=== PATIENT | female | born 1955 | race Asian ===

== ENCOUNTER 2022-05-04 08:20 | Outpatient (REF) | payer OTHER, SELFPAY ==
[2022-05-04 11:19] LABS: MANUAL DIFF FLAG NO
[2022-05-04 11:28] LABS: Basophils Percent Auto 0.2 % (0-2); Eosinophils Absolute Auto 0.1 X10*3/uL (0.0-0.4); Eosinophils Percent Auto 0.6 % (0-4); Hematocrit 33.2 % (37.0-47.0); Hemoglobin 10.5 g/dl (12.0-16.0); Imm Gran Abs Auto 0.04 X10*3/uL (0.00-0.03); Imm Gran Pct Auto 0.4 % (0.0-0.4); Lymphocytes Absolute Auto 0.8 X10*3/uL (1.2-4.9); Lymphocytes Percent Auto 9.1 % (20-40); Mean Corpuscular HGB Conc 31.6 g/dl (31.0-35.0); Mean Corpuscular Hemoglobin 19.8 pg (27.0-33.0); Mean Platelet Volume 11.3 fL (9.4-12.3); Monocytes Absolute Auto 0.5 X10*3/uL (0.1-1.2); Monocytes Percent Auto 5.5 % (2-11); Neutrophils Absolute Auto 7.6 x10*3/uL (2.0-8.3); Neutrophils Percent Auto 84.2 % (45-73); Platelet Count 229 X10*3/uL (160-400); Red Cell Distribution Width 15.3 % (11.0-16.0)
[2022-05-04 11:29] LABS: Mean Corpuscular Volume 62.6 fL (80.0-98.0)
[2022-05-04 11:47] LABS: Alanine Aminotransferase 16 U/L (0-31); Albumin Level 4.1 g/dL (3.5-5.0); Alkaline Phosphatase 73 U/L (39-117); Anion Gap 9 (12-20); Aspartate Amino Transferase 16 U/L (5-31); Bilirubin Total 1.4 mg/dL (0.0-1.0); Blood Urea Nitrogen 12 mg/dL (9-16); Carbon Dioxide 29 mmol/L (22-29); Chloride 104 mmol/L (96-108); Cholesterol 187 mg/dL; Estimated Glomerular Filt Rate > 60; Glucose Fasting 126 mg/dL (60-99); HDL Cholesterol 56 mg/dL; LDL Cholesterol Calculated 111 mg/dl; Potassium 4.2 mmol/L (3.3-5.1); Sodium 138 mmol/L (135-145); Total Protein 7.7 g/dL (6.5-8.0); Triglycerides 102 mg/dL
[2022-05-04 11:50] LABS: Creatinine Urine 192.98 mg/dL; Microalbum/Creatinine Ratio Ur 122.2 ug/mg cr
[2022-05-04 12:05] LABS: Vitamin D 25-OH Total 36.9 ng/mL (>30)
== END 2022-05-04 08:21 | disposition home or self-care (01) ==
LOC: HO.HMGCLDS 08:20
PROVIDERS: PCP Internal Medicine; Visit Provider Internal Medicine
DX: Z00.01 Encounter for general adult medical examination with abnormal findings (principal); E08.9 Diabetes mellitus due to underlying condition without complications; I10 Essential (primary) hypertension
CPT/HCPCS: 36415; 80053; 80061; 82043; 82306; 85025

== ENCOUNTER 2022-05-25 07:33 | Outpatient (REF) | payer OTHER, SELFPAY ==
--- NOTE | ~2022-05-25 | MM_ITS ---
EXAMINATION: MM SCREENING DIGITAL BREAST TOMOSYNTHESIS, BILATERAL CLINICAL INFORMATION: Screening. Asymptomatic. Prior flu-tb-ckxah mammography currently unavailable. No known family history breast cancer. The lifetime risk of breast cancer based on the Tyrer-Cuzick Model is 6%. COMPARISON: None. TECHNIQUE: Digital breast tomosynthesis is performed in both the craniocaudal and mediolateral oblique views along with computer-aided detection (CAD). Synthesized 2D images are generated from the tomosynthesis. FINDINGS: There are scattered areas of fibroglandular density (ACR BI-RADS breast composition Category b). There are no significant masses, abnormal calcifications, or other abnormalities. The axilla and skin contours are unremarkable. Radiology department staff will attempt to retrieve prior ypt-zm-lkqot mammography to allow for comparison in an addendum report. MM/MM tomosynthesis screening BI IMPRESSION: No mammographic evidence of malignancy. ASSESSMENT: BI-RADS 1: Negative RECOMMENDATION: -Routine annual mammography screening. -Radiology department staff will attempt to retrieve prior uir-mr-whtpm mammography to allow for comparison in an addendum report. This patient's information was entered into a reminder system with a target due date for their next mammogram.
--- NOTE | ~2022-05-25 | MM_ITS ---
EXAMINATION: BONE DENSITOMETRY CLINICAL INDICATION: Osteoporosis. COMPARISON: This is the patient's baseline examination. TECHNIQUE: Using a Echov[employer] DXA System (software version: 13.1) manufactured by [employer], dual-energy x-ray absorptiometry was performed of the lumbar spine and left hip. The images are of good technical quality. Summary results are attached. FINDINGS: AP SPINE L1-L4: BMD 0.991 g/cm2, Z-score 0.1, T-score -1.6, osteopenia. LEFT FEMUR, NECK: BMD 0.783 g/cm2, Z-score -0.2, T-score -1.8, osteopenia. LEFT FEMUR, TOTAL: BMD 0.916 g/cm2, Z-score 0.7, T-score -0.7, normal. IDENTIFIED RISK FACTORS: Menopause. HISTORY OF FRACTURE: None listed. MEDICATIONS: Vitamin D. MM/XR DEXA axial skeleton IMPRESSION: 1. DIAGNOSIS: Osteopenia based on the lowest T-score value of -1.8 in the femoral neck applying World Health Organization criteria. 2. 10-YEAR FRACTURE RISK PREDICTION, FRAX: Major osteoporotic fracture (clinical spine, forearm, hip or shoulder) 6.1%. Hip fracture 1.0%. 3. Treatment Recommendations: NOF guidelines recommend consideration for treatment in postmenopausal women and men age 50 and older presenting with the following: -A hip or vertebral (clinical or morphometric) fracture. -T-score less than or equal to -2.5 at the femoral neck or spine after appropriate evaluation to exclude secondary causes. -Low bone mass at the hip or spine and a 10-year fracture probability by FRAX of greater than or equal to 3% for hip fracture or greater than or equal to 20% for major osteoporotic fracture based on the [place] adapted WHO algorithm. 4. Other Recommendations: All treatment decisions require clinical judgment and consideration of individual patient factors, including patient preferences, comorbidities, previous drug use, risk factors not captured in the FRAX model (e.g. frailty, falls, vitamin D deficiency, increased bone turnover, interval significant decline in bone density) and possible under or overestimation of fracture risk by FRAX. Additional medical evaluation for secondary cause of low bone mineral density may be appropriate. FUTURE SCAN RECOMMENDATION: People with diagnosed cases of osteoporosis or at high risk for fracture should have regular bone mineral density tests. For patients eligible for Medicare, routine testing is allowed once every 2 years. The testing frequency can be increased to one year for patients who have rapidly progressing disease, those who are receiving or discontinuing medical therapy to restore bone mass, or have additional risk factors.
== END 2022-05-25 07:34 | disposition home or self-care (01) ==
LOC: HO.MAMMO 07:33
PROVIDERS: PCP Internal Medicine; Visit Provider Internal Medicine
DX: Z12.31 Encounter for screening mammogram for malignant neoplasm of breast (principal); Z13.820 Encounter for screening for osteoporosis; M81.0 Age-related osteoporosis without current pathological fracture; Z78.0 Asymptomatic menopausal state
CPT/HCPCS: 77063; 77067; 77080

== ENCOUNTER 2022-12-12 08:05 | Outpatient (REF) | payer OTHER, SELFPAY ==
[2022-12-12 11:31] LABS: MANUAL DIFF FLAG NO
[2022-12-12 11:56] LABS: Basophils Percent Auto 0.4 % (0-2); Eosinophils Absolute Auto 0.1 X10*3/uL (0.0-0.4); Eosinophils Percent Auto 2.3 % (0-4); Hematocrit 31.7 % (37.0-47.0); Imm Gran Abs Auto 0.02 X10*3/uL (0.00-0.03); Imm Gran Pct Auto 0.4 % (0.0-0.4); Lymphocytes Absolute Auto 2.4 X10*3/uL (1.2-4.9); Lymphocytes Percent Auto 45.4 % (20-40); Mean Corpuscular HGB Conc 31.5 g/dl (31.0-35.0); Mean Corpuscular Hemoglobin 19.4 pg (27.0-33.0); Mean Platelet Volume 10.3 fL (9.4-12.3); Monocytes Absolute Auto 0.3 X10*3/uL (0.1-1.2); Monocytes Percent Auto 6.3 % (2-11); Neutrophils Absolute Auto 2.4 x10*3/uL (2.0-8.3); Neutrophils Percent Auto 45.2 % (45-73); Platelet Count 300 X10*3/uL (160-400); Red Blood Count 5.15 X10*6/uL (4.20-5.50); Red Cell Distribution Width 15.4 % (11.0-16.0); White Blood Count 5.3 X10*3/uL (4.8-10.8)
[2022-12-12 11:58] LABS: Mean Corpuscular Volume 61.6 fL (80.0-98.0)
[2022-12-12 12:22] LABS: Alanine Aminotransferase 16 U/L (0-31); Alkaline Phosphatase 66 U/L (39-117); Anion Gap 13 (12-20); Aspartate Amino Transferase 14 U/L (5-31); Bilirubin Total 0.7 mg/dL (0.0-1.0); Blood Urea Nitrogen 12 mg/dL (9-16); Calcium 9.2 mg/dL (8.4-10.2); Carbon Dioxide 26 mmol/L (22-29); Chloride 106 mmol/L (96-108); Cholesterol 192 mg/dL (<200); Estimated Glomerular Filt Rate > 60; Glucose Fasting 108 mg/dL (60-99); HDL Cholesterol 63 mg/dL (>40); Iron 117 mcg/dL (30-160); LDL Cholesterol Calculated 106 mg/dL (<100); Percent Iron Saturation 49 % (15-50); Potassium 4.1 mmol/L (3.3-5.1); Sodium 141 mmol/L (135-145); Total Iron Binding Capacity 238 mcg/dL (228-428); Total Protein 7.5 g/dL (6.5-8.0); Triglycerides 115 mg/dL (<150); Unsaturated Iron Binding 121 ug/dL; Vitamin D 25-OH Total 31.9 ng/mL (>30)
== END 2022-12-12 08:06 | disposition home or self-care (01) ==
LOC: HO.HMGCLDS 08:05
PROVIDERS: PCP Internal Medicine; Visit Provider Internal Medicine
DX: D56.9 Thalassemia, unspecified (principal); E08.9 Diabetes mellitus due to underlying condition without complications; I10 Essential (primary) hypertension
CPT/HCPCS: 36415; 80053; 80061; 82306; 83540; 85025

== ENCOUNTER 2022-12-21 13:35 | Outpatient (AMB) | payer OTHER, SELFPAY ==
--- NOTE | 2022-12-21 13:37 | A.OFFPC_ITS ---
Vital Signs 12/21/22 13:42 Height 5 ft Weight 147 lb BMI 28.7 BP 126/70 Blood Pressure Location Rt brachial Position Sitting Pulse 79 Pulse Source Pulse Oximeter Pulse Oximetry (%) 97 Oxygen Delivery Method Room Air Intake Visit Reasons: f/u DM and lipids Intake Note: Pt is here today for her f/u DM and lipids Allergies No Known Allergies Allergy (Verified 01/15/23 04:03) Medication List - Last Reconciled 01/15/23 by Mary Mcmahon MD blood sugar diagnostic (OneTouch Verio test strips) once a day lancets test blood sugar once a day losartan 25 mg PO QAM metformin 500 mg PO DAILY rosuvastatin 5 mg PO Q2D 3 months Tobacco use date assessed: 12/21/22 Fall risk assessment: No Falls in past year Last assessed Fall Risk: 12/21/22 Dental Screening Dental Screen Date: 12/21/22 Did you have a dental visit in the last 12 months?: Yes Did you have a dental problem in the last 6 months where you did not have access to dental care?: Yes Was dental information given to patient?: Patient has dentist HPI f/u DM and lipids HPI Details 67-year-old lady here today for follow-u p on her diabetes mellitus and dyslipidemia as well as her hypertension. She has been compliant with taking her medications, exercises regularly goes to the gym, has been feeling well with no complaints at present time. 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 Surgical History History of cataract surgery History of bunionectomy of both great toes History of cholecystectomy History of Hx of colonoscopy Family History Mother Diabetes mellitus Brother Lung cancer Diabetes mellitus Brother Diabetes mellitus Social History Housing: House Patient Tobacco Use Status: Never used Tobacco e-Cigarette/Vaping Use: Never Used service: No Current occupational status: retired Cognitive needs: No Hearing needs: No Vision needs: Yes Questionnaire Thrive Questionnaire Date Thrive assessed: 04/25/22 CRISS-7 AMB Questionnaire CRISS-7 Date CRISS - 7 assessed: 04/25/22 Source: Developed by Drs. Niraj Barclay, Citlaly Martinez, Ulisses Mckeon and colleagues, with an educational karri from [employer]. Review of Systems Const Denies body aches, Denies fatigue, Denies fever(s), Denies headache(s) and Denies weakness Eyes Denies change in vision ENT Denies dizziness, Denies headache(s), Denies nasal congestion, Denies nasal discharge and Denies sore throat Card Denies chest pain, Denies lightheadedness, Denies palpitations and Denies dyspnea Resp Denies chest congestion, Denies cough, Denies dyspnea and Denies wheezing GI Denies abdominal pain, Denies change in bowel habits and Denies heartburn Denies hematuria, Denies urinary frequency, Denies dysuria and Denies urinary urgency Musc Reports no additional complaints Neuro Denies dizziness, Denies headache(s), Reports tremor(s) (Occasional mild) and Denies weakness Psych Reports no additional complaints Endo Denies fatigue, Denies polydipsia, Denies polyuria and Denies palpitations Hector/Lymph Denies easy bruising Aller/Immun Denies seasonal rhinorrhea and Denies wheezing Physical exam (Primary Care) Vital Signs: Last Vital Signs Pulse 79 12/21/22 13:42 BP 126/70 12/21/22 13:42 Pulse Ox 97 12/21/22 13:42 Oxygen Delivery Method Room Air 12/21/22 13:42 BMI result Body Mass Index 28.7 Tobacco/Smoking Status: Tobacco use Status Tobacco use date assessed 12/21/22 12/21/22 13:38 Patient Tobacco Use Status Never used Tobacco 12/21/22 13:38 e-Cigarette/Vaping Use Never Used 12/21/22 13:38 Thrive Assessment: Date of Thrive Assessment Date Thrive assessed 04/25/22 12/21/22 13:38 Const General: healthy appearing, comfortable, no acute distress, alert and awake Nutritional Appearance: overweight Orientation/consciousness: patient oriented x3 Limitations: no limitations HENMT Head: Yes normocephalic Ears: hearing grossly normal bilaterally, external ears normal, TM's normal bilaterally and EAC's normal General nose exam: Normal external nose present, Normal nares present and No nasal discharge present Face and sinus: Yes face symmetric Mouth: Normal oral and palatal mucosa present, oropharynx normal and moist mucous membranes Eyes General: appearance normal, both eyes and all related structures Neck Neck: Yes full ROM, Yes no lymphadenopathy and Yes supple Thyroid: Thyroid normal Carotids: no bruits Resp Effort & Inspection: normal respiratory effort and able to speak in complete sentences Auscultation: clear to auscultation bilaterally Cardio Palpation: normal PMI Rate: regular rate Rhythm: regular rhythm Heart sounds: S1 normal heart sound present and S2 normal heart sound present Bruits: no abdominal aortic bruits Peripheral pulses: Peripheral pulses 2+ throughout GI Inspection: Yes normal to inspection Palpation (GI): No Abdominal aortic bruit present, Soft to palpation, nontender, no guarding and no masses Auscultation: normal bowel sounds General: Yes no CVA tenderness Back/Spine/Pelvis Back: no CVA tenderness and No back tenderness Cervical Spine: cervical ROM normal Thoracic/Lumbar Spine: thoraco-lumbar ROM normal and Lasegue's sign negative Neuro General: patient oriented x3, gait normal, tone normal, moves all extremities, Normal light touch and pain sensation, no focal motor deficits and CN's II-XI intact bilaterally Cranial nerves: Yes CN's II-XII intact bilaterally Cognition (Neuro): normal cognition Gait exam (Neuro): Normal gait present Motor exam (neuro): 5/5 motor strength present throughout Extrem General: Yes normal to inspection, Yes full ROM, Yes no joint enlargement, Yes no clubbing, cyanosis or edema, Yes no pedal edema, Yes no calf tenderness and Yes normal gait Results Reviewed Results Reviewed: ENTERED: 12/12/22-807 BRUCE SHOEMAKER: ORDERED: CBC Auto Diff Test Result Flag Reference Site WBC 5.3 4.8-10.8 X10*3/uL RBC 5.15 4.20-5.50 X10*6/uL HGB 10.0 L 12.0-16.0 g/dl HCT 31.7 L 37.0-47.0 % MCV 61.6 L 80.0-98.0 fL MCH 19.4 L 27.0-33.0 pg MCHC 31.5 31.0-35.0 g/dl RDW 15.4 11.0-16.0 % PLT 300 # 160-400 X10*3/uL MPV 10.3 9.4-12.3 fL Neut Pct Auto 45.2 45-73 % ImGran Pct Auto 0.4 0.0-0.4 % Lymp Pct Auto 45.4 H 20-40 % [place] Pct Auto 6.3 2-11 % Eos Pct Auto 2.3 0-4 % Baso Pct Auto 0.4 0-2 % NRBC Pct Auto 0.0 0.0-0.2 /100WBC ANC Neut Abs # 2.4 2.0-8.3 x10*3/uL ImGran Abs Auto 0.02 0.00-0.03 X10*3/uL Lymph Abs Auto 2.4 1.2-4.9 X10*3/uL [place] Abs Auto 0.3 0.1-1.2 X10*3/uL Eos Abs Auto 0.1 0.0-0.4 X10*3/uL Baso Abs Auto 0.0 0.0-0.2 X10*3/uL NRBC Abs Auto 0.000 0.0-0.012 X10*3/uL ENTERED: 12/12/22-08 BRUCE SHOEMAKER: ORDERED: CMP Fast, IRON PROF, Lipid Panel, Vitamin D 25-OH Test Result Flag Reference Site Sodium 141 135-145 mmol/L Potassium 4.1 3.3-5.1 mmol/L CL 106 96-108 mmol/L CO2 26 22-29 mmol/L Gap 13 12-20 BUN 12 9-16 mg/dL Creat 0.71 0.5-1.4 mg/dL EGFR > 60 NOTE: For -[place] individuals, multiply the result by 1.210. Chronic Kidney Disease: Estimated GFR < 60 mL/min/1.73m2 Severe Kidney Disease: Estimated GFR < 15 mL/min/1.73m2 FBS 108 H 60-99 mg/dL A fasting glucose from 100-125 mg/dl is considered impaired (pre-diabetes). CA 9.2 8.4-10.2 mg/dL Iron 117 30-160 mcg/dL TIBC 238 228-428 mcg/dL Saturation 49 15-50 % UIBC 121 ug/dL Total Bili 0.7 0.0-1.0 mg/dL AST (GOT) 14 5-31 U/L ALT (GPT) 16 0-31 U/L Protein, Total 7.5 6.5-8.0 g/dL Alb 4.0 3.5-5.0 g/dL Triglyceride 115 <150 mg/dL Desirable Triglyceride: less than 150 mg/dL Borderline High Triglyceride 150-199 mg/dL High Triglyceride: 200-499 mg/dL Very High Triglyceride: greater than or equal to 5OO mg/dL Cholesterol 192 <200 mg/dL Desirable Cholesterol: less than 200 mg/dL Borderline High Cholesterol: 200-239 mg/dL High Cholesterol: greater than 239 mg/dL LDL Calculated 106 H <100 mg/dL Desirable LDL: less than 100 mg/dL Near Optimal/Above Optimal LDL: 110-129 mg/dL Borderline High LDL: 130-159 mg/dL High LDL: 160-189 mg/dL Very High LDL: greater than or equal to 190 mg/dL HDL 63 >40 mg/dL Desirable HDL: greater than 40 mg/dL Note: This HDL assay may give artificially low results in patients with liver disease. Alk Phos 66 39-117 U/L Vit D 25-OH Tot 31.9 >30 ng/mL Health Based Reference Values* < 20 ng/mL Deficient 20-30 ng/mL Insufficient > 30 ng/mL Sufficient Laboratory Tests 04/25/22 10:11 Hgb A1c (Clinic) 5.6 Assessment and Plan Assessment & Plan (1) Diabetes mellitus with microalbuminuria: Code(s): E11.29 - Type 2 diabetes mellitus with other diabetic kidney complication; R80.9 - Proteinuria, unspecified Plan: Continue with metformin 500 mg once a day, last hemoglobin A1c was at 5.6% reminded about getting yearly diabetes retinopathy screening and getting an updated flu vaccine and the new COVID booster which is coming up later this month. (2) Thalassemia: Code(s): D56.9 - Thalassemia, unspecified Plan: Patient with microcytic hyperchromic anemia likely due to thalassemia currently asymptomatic (3) Osteopenia of left femoral neck: Code(s): M85.852 - Other specified disorders of bone density and structure, left thigh Plan: Continue with regular weight-bearing exercise, start taking vitamin-D 3 supplements at least 2000 units daily, and take adequate calcium from dietary sources. (4) Essential hypertension: Code(s): I10 - Essential (primary) hypertension Plan: Blood pressure at goal of less than 130/80. Continue with losartan 25 mg daily. Reinforced importance of following a low sodium diet, getting regular exercise, and lowering stress levels. Orders: Orders Microalbumin, Random (w Creat) 06/15/23 E11.29 - Type 2 diabetes mellitus with other diabetic kidney complication, R80.9 - Proteinuria, unspecified, M85.852 - Other specified disorders of bone density and structure, left thigh, D56.9 - Thalassemia, unspecified, I10 - Essential (primary) hypertension, Z78.0 - Asymptomatic menopausal state Vitamin D 25-OH Total 06/15/23 E11.29 - Type 2 diabetes mellitus with other diabetic kidney complication, R80.9 - Proteinuria, unspecified, M85.852 - Other specified disorders of bone density and structure, left thigh, D56.9 - Thalassemia, unspecified, I10 - Essential (primary) hypertension, Z78.0 - Asymptomatic menopausal state Hemoglobin A1c 06/15/23 E11.29 - Type 2 diabetes mellitus with other diabetic kidney complication, R80.9 - Proteinuria, unspecified, M85.852 - Other specified disorders of bone density and structure, left thigh, D56.9 - Thalassemia, unspecified, I10 - Essential (primary) hypertension, Z78.0 - Asymptomatic menopausal state Basic Metabolic Panel Fasting 06/15/23 E11.29 - Type 2 diabetes mellitus with other diabetic kidney complication, R80.9 - Proteinuria, unspecified, M85.852 - Other specified disorders of bone density and structure, left thigh, D56.9 - Thalassemia, unspecified, I10 - Essential (primary) hypertension, Z78.0 - Asymptomatic menopausal state Aspartate Amino Transferase 06/15/23 E11.29 - Type 2 diabetes mellitus with other diabetic kidney complication, R80.9 - Proteinuria, unspecified, M85.852 - Other specified disorders of bone density and structure, left thigh, D56.9 - Thalassemia, unspecified, I10 - Essential (primary) hypertension, Z78.0 - Asymptomatic menopausal state Alanine Aminotransferase 06/15/23 E11.29 - Type 2 diabetes mellitus with other diabetic kidney complication, R80.9 - Proteinuria, unspecified, M85.852 - Other specified disorders of bone density and structure, left thigh, D56.9 - Thalassemia, unspecified, I10 - Essential (primary) hypertension, Z78.0 - Asymptomatic menopausal state Lipid Panel 06/15/23 E11.29 - Type 2 diabetes mellitus with other diabetic kidney complication, R80.9 - Proteinuria, unspecified, M85.852 - Other specified disorders of bone density and structure, left thigh, D56.9 - Thalassemia, unspecified, I10 - Essential (primary) hypertension, Z78.0 - Asymptomatic menopausal state Medications: Changed From blood sugar diagnostic Twice a day 100 ea 4RF To blood sugar diagnostic (OneTouch Verio test strips) once a day 100 ea 4RF From lancets test blood sugar twice a day 100 ea 1RF To lancets test blood sugar once a day 100 ea 4RF Coding Level of Care Code Est Pt Level 4 (40253) Diagnoses Diabetes mellitus with microalbuminuria E11.29; R80.9 Thalassemia D56.9 Osteopenia of left femoral neck M85.852 Essential hypertension I10
[2022-12-21 13:42] VITALS: BP 126/70; PULSE 79; O2SAT 97; BMI 28.7
== END 2022-12-21 14:44 | disposition home or self-care (01) ==
PROVIDERS: PCP Internal Medicine; Visit Provider Internal Medicine
DX: E11.29 Type 2 diabetes mellitus with other diabetic kidney complication (principal); R80.9 Proteinuria, unspecified; D56.9 Thalassemia, unspecified; M85.852 Other specified disorders of bone density and structure, left thigh; I10 Essential (primary) hypertension
CPT/HCPCS: 99214

== ENCOUNTER 2023-06-14 08:13 | Outpatient (REF) | payer OTHER, SELFPAY | END 2023-06-14 08:14 | disposition home or self-care (01) | LOC: HO.MAMMO 08:13 | PROVIDERS: PCP Internal Medicine; Visit Provider Internal Medicine | DX: Z12.31 Encounter for screening mammogram for malignant neoplasm of breast (principal) | CPT/HCPCS: 77063; 77067 ==

== ENCOUNTER → 2023-06-14 08:30 | Outpatient (BNV) | payer OTHER, SELFPAY | PROVIDERS: PCP Internal Medicine; Visit Provider Radiology Diagnostic Radiology | DX: Z12.31 Encounter for screening mammogram for malignant neoplasm of breast (principal) | CPT/HCPCS: 77063; 77067 ==

== ENCOUNTER 2023-06-29 06:52 | Outpatient (REF) | payer OTHER, SELFPAY ==
[2023-06-29 10:53] LABS: Estimated Average Glucose 108 mg/dL; Hemoglobin A1c % 5.4 % (<6.0)
[2023-06-29 11:18] LABS: Alanine Aminotransferase 13 U/L (0-31); Anion Gap 11 (12-20); Aspartate Amino Transferase 13 U/L (5-31); Blood Urea Nitrogen 15 mg/dL (9-16); Calcium 9.3 mg/dL (8.4-10.2); Carbon Dioxide 28 mmol/L (22-29); Chloride 107 mmol/L (96-108); Cholesterol 182 mg/dL (<200); Estimated Glomerular Filt Rate > 60; Glucose Fasting 96 mg/dL (60-99); HDL Cholesterol 56 mg/dL (>40); LDL Cholesterol Calculated 105 mg/dL (<100); Potassium 3.9 mmol/L (3.3-5.1); Sodium 142 mmol/L (135-145); Triglycerides 105 mg/dL (<150)
[2023-06-29 11:34] LABS: Vitamin D 25-OH Total 30.6 ng/mL (>30)
[2023-06-29 11:36] LABS: Creatinine Urine 139.89 mg/dL; Microalbum/Creatinine Ratio Ur 82.2 ug/mg cr (<30)
== END 2023-06-29 06:53 | disposition home or self-care (01) ==
LOC: HO.HMGCLDS 06:52
PROVIDERS: PCP Internal Medicine; Visit Provider Internal Medicine
DX: E11.29 Type 2 diabetes mellitus with other diabetic kidney complication (principal); R80.9 Proteinuria, unspecified; M85.852 Other specified disorders of bone density and structure, left thigh; D56.9 Thalassemia, unspecified; I10 Essential (primary) hypertension; Z78.0 Asymptomatic menopausal state
CPT/HCPCS: 36415; 80048; 80061; 82043; 82306; 82570; 83036; 84450; 84460

== ENCOUNTER 2023-07-04 08:36 | Outpatient (AMB) | payer OTHER, SELFPAY ==
[2023-07-04 09:00] VITALS: BP 136/80; PULSE 77; O2SAT 98; BMI 29.3
--- NOTE | 2023-07-04 09:00 | A.OFFPC_ITS ---
<Statement entered by Mary Mcmahon MD - 08/20/24 15:28> This note has been administratively?closed. Vital Signs 07/04/23 09:00 Height 5 ft Weight 150 lb BMI 29.3 BP 136/80 Blood Pressure Location Rt brachial Position Sitting Pulse 77 Pulse Source Pulse Oximeter Pulse Oximetry (%) 98 Oxygen Delivery Method Room Air Intake Visit Reasons: Annual PE Per AE Intake Note: Pt is here today for her PE Last mammogram 06/14/23, bone density scan 05/25/22 Allergies statins Adverse Reaction (Uncoded 12/20/23 08:16) vertigo Medication List - Last Reconciled 07/04/23 by Mary Mcmahon MD ascorbic acid (vitamin C) mg PO blood sugar diagnostic ([facility] Verio test strips) once a day cholecalciferol (vitamin D3) 50 mcg PO DAILY coQ10 (ubiquinol) (Qunol Mj CoQ10) 100 mg PO BID elderberry fruit mg PO lancets test blood sugar once a day losartan 25 mg PO QAM metformin 500 mg PO DAILY [milk thistle PO] [turmeric- garlic-jewel PO] Tobacco use date assessed: 07/04/23 Fall risk assessment: No Falls in past year Last assessed Fall Risk: 07/04/23 Dental Screening Dental Screen Date: 07/04/23 Did you have a dental visit in the last 12 months?: Yes Did you have a dental problem in the last 6 months where you did not have access to dental care?: No Was dental information given to patient?: Patient has dentist [facility] Medical History Osteopenia of left femoral neck Diabetes mellitus with microalbuminuria History of nephrolithiasis History of herpes zoster History of tear of meniscus of knee joint Thalassemia Essential hypertension 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 Surgical History History of cataract surgery History of bunionectomy of both great toes History of cholecystectomy History of Hx of colonoscopy Family History Mother Diabetes mellitus Brother Lung cancer Diabetes mellitus Brother Diabetes mellitus Social History Housing: House Patient Tobacco Use Status: Never used Tobacco e-Cigarette/Vaping Use: Never Used service: No Current occupational status: retired Cognitive needs: No Hearing needs: No Vision needs: Yes Questionnaire PHQ-9 Over the last 2 weeks, how often have you been bothered by any of the following problems? 1. Little interest or pleasure in doing things: not at all 2. Feeling down, depressed, or hopeless: not at all 3. Trouble falling or staying asleep, or sleeping too much: not at all 4. Feeling tired or having little energy: not at all 5. Poor appetite or overeating: not at all 6. Feeling bad about yourself - or that you are a failure or have let yourself or your family down: not at all 7. Trouble concentrating on things, such as reading the newspaper or watching television: not at all 8. Moving or speaking so slowly that other people could have noticed. Or the opposite - being so fidgety or restless that you have been moving around a lot more than usual: not at all 9. Thoughts that you would be better off or of hurting yourself in some way: not at all Total score: 0 Source: Developed by Drs. Niraj Barclay, Citlaly Martinez, Ulisses Mckeon and colleagues, with an educational karri from [employer]. Thrive Questionnaire Date Thrive assessed: 07/04/23 I am a: Patient What is your living situation today?: I have a steady place to live Within the past 12 months, did the food you bought not last and you didn't have the money to get more?: Never true Within the past 12 months, did you worry whether your food would run out before you got money to buy more?: Never true Do you have trouble paying for medicines?: No Do you have trouble getting transportation to medical appointments?: No Do you have trouble paying your heating and electricity bill?: No Do you have trouble taking care of your child, family member or friend?: No Do you have trouble with day-to-day activities such as bathing, preparing meals, shopping, managing finances, etc.?: No Are you currently unemployed and looking for a job?: No Are you interested in more education?: No THRIVE Score: 0 CRISS-7 AMB Questionnaire CRISS-7 Date CRISS - 7 assessed: 07/04/23 Feeling nervous, anxious, or on edge: 0 = Not at all Not being able to stop or control worryin = Not at all Worrying too much about different things: 0 = Not at all Trouble relaxin = Not at all Being so restless that it is hard to sit still: 0 = Not at all Becoming easily annoyed or irritable: 0 = Not at all Feeling afraid as if something awful might happen: 0 = Not at all Total CRISS-7 score (0-4 normal; 5-9 mild; 10-14 moderate; 15-21 severe): 0 Source: Developed by Drs. Niraj Barclay, Citlaly Martinez, Ulisses Mckeon and colleagues, with an educational karri from [employer]. Review of Systems Eyes Details: UTD with retinopathy screening . marbella Maria in [facility] Physical exam (Primary Care) Vital Signs: Last Vital Signs Pulse 77 07/04/23 09:00 BP 136/80 07/04/23 09:00 Pulse Ox 98 07/04/23 09:00 Oxygen Delivery Method Room Air 07/04/23 09:00 BMI result Body Mass Index 29.3 Tobacco/Smoking Status: Tobacco use Status Tobacco use date assessed 07/04/23 07/04/23 09:02 Patient Tobacco Use Status Never used Tobacco 07/04/23 09:00 e-Cigarette/Vaping Use Never Used 07/04/23 09:00 PHQ-9: PHQ-9 Score PHQ-9: Total score 0 07/04/23 09:51 Thrive Assessment: Date of Thrive Assessment Date Thrive assessed 07/04/23 07/04/23 09:12 Coding Level of Care Code Est Pt Prev Care >65y(08428) Diagnoses Osteopenia of left femoral neck M85.852 Diabetes mellitus with microalbuminuria E11.29; R80.9 Thalassemia D56.9 Essential hypertension I10 Annual visit for general adult medical examination with abnormal findings Z00.01
== END 2023-07-04 13:03 | disposition home or self-care (01) ==
PROVIDERS: PCP Internal Medicine; Visit Provider Internal Medicine
DX: M85.852 Other specified disorders of bone density and structure, left thigh (principal); E11.29 Type 2 diabetes mellitus with other diabetic kidney complication; R80.9 Proteinuria, unspecified; D56.9 Thalassemia, unspecified; I10 Essential (primary) hypertension; Z00.01 Encounter for general adult medical examination with abnormal findings
CPT/HCPCS: 99499

== ENCOUNTER 2023-12-18 08:30 | Outpatient (REF) | payer OTHER, SELFPAY ==
[2023-12-18 10:27] LABS: Estimated Average Glucose 120 mg/dL; Hemoglobin A1c % 5.8 % (<6.0)
[2023-12-18 10:43] LABS: Alanine Aminotransferase 21 U/L (0-31); Anion Gap 11 (12-20); Aspartate Amino Transferase 16 U/L (5-31); Blood Urea Nitrogen 15 mg/dL (9-16); Calcium 9.2 mg/dL (8.4-10.2); Carbon Dioxide 28 mmol/L (22-29); Chloride 106 mmol/L (96-108); Cholesterol 185 mg/dL (<200); Estimated Glomerular Filt Rate > 60; Glucose Fasting 118 mg/dL (60-99); HDL Cholesterol 58 mg/dL (>40); LDL Cholesterol Calculated 103 mg/dL (<100); Potassium 4.6 mmol/L (3.3-5.1); Sodium 140 mmol/L (135-145); Triglycerides 121 mg/dL (<150)
[2023-12-18 10:52] LABS: Folate 13.4 ng/mL (> or = 4.0); Vitamin B12 805 pg/mL (200-900)
== END 2023-12-18 08:31 | disposition home or self-care (01) ==
LOC: HO.HMGCLDS 08:30
PROVIDERS: PCP Internal Medicine; Visit Provider Internal Medicine
DX: Z00.01 Encounter for general adult medical examination with abnormal findings (principal); M85.852 Other specified disorders of bone density and structure, left thigh; E11.29 Type 2 diabetes mellitus with other diabetic kidney complication; R80.9 Proteinuria, unspecified; D56.9 Thalassemia, unspecified; I10 Essential (primary) hypertension
CPT/HCPCS: 36415; 80048; 80061; 82306; 82607; 82746; 83036; 84450; 84460

== ENCOUNTER 2023-12-20 08:10 | Outpatient (AMB) | payer OTHER, SELFPAY ==
--- NOTE | 2023-12-20 08:15 | MHC.PC.OV ---
Vital Signs 12/20/23 08:16 Height 5 ft Weight 152 lb BMI 29.7 BP 132/70 Blood Pressure Location Rt brachial Position Sitting Pulse 72 Pulse Source Pulse Oximeter Pulse Oximetry (%) 98 Oxygen Delivery Method Room Air Intake Visit Reasons: F/U DM HTN lipids, hyperuricemia after labs Intake Note: Patient here to follow up on labs and HTN Allergies statins Adverse Reaction (Uncoded 12/20/23 08:16) vertigo Medication List - Last Reconciled 12/23/23 by Mary Mcmahon MD ascorbic acid (vitamin C) mg PO blood sugar diagnostic ([employer] Verio test strips) once a day cholecalciferol (vitamin D3) 50 mcg PO DAILY coQ10 (ubiquinol) (Qunol Mj CoQ10) 100 mg PO BID elderberry fruit mg PO lancets test blood sugar once a day losartan 25 mg PO QAM metformin 500 mg PO DAILY [milk thistle PO] [turmeric- garlic-jewel PO] Tobacco use date assessed: 07/04/23 Fall risk assessment: No Falls in past year Last assessed Fall Risk: 12/20/23 Dental Screening Dental Screen Date: 07/04/23 HPI F/U DM HTN lipids, hyperuricemia after labs HPI Details 68 year-old lady here today for follow-up on her diabetes mellitus , dyslipidemia , and hypertension. She has been compliant with taking her medications, exercise regularly at the gym, has been compliant with healthy eating habits. Has been feeling well with no complaints at present time. Recent fasting labs showed diabetes mellitus well controlled with hemoglobin A1c at 5.8%, with lipids, electrolytes, renal function within normal limits. Vitamin-D level however was deficient at 27. [facility] Medical History Osteopenia of left femoral neck Diabetes mellitus with microalbuminuria History of nephrolithiasis History of herpes zoster History of tear of meniscus of knee joint Thalassemia Essential hypertension 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 Surgical History History of cataract surgery History of bunionectomy of both great toes History of cholecystectomy History of Hx of colonoscopy Family History Mother Diabetes mellitus Brother Lung cancer Diabetes mellitus Brother Diabetes mellitus Social History Housing: House Patient Tobacco Use Status: Never used Tobacco e-Cigarette/Vaping Use: Never Used service: No Current occupational status: retired Cognitive needs: No Hearing needs: No Vision needs: Yes Questionnaire PHQ-9 Over the last 2 weeks, how often have you been bothered by any of the following problems? 1. Little interest or pleasure in doing things: not at all 2. Feeling down, depressed, or hopeless: not at all 3. Trouble falling or staying asleep, or sleeping too much: not at all 4. Feeling tired or having little energy: not at all 5. Poor appetite or overeating: not at all 6. Feeling bad about yourself - or that you are a failure or have let yourself or your family down: not at all 7. Trouble concentrating on things, such as reading the newspaper or watching television: not at all 8. Moving or speaking so slowly that other people could have noticed. Or the opposite - being so fidgety or restless that you have been moving around a lot more than usual: not at all 9. Thoughts that you would be better off or of hurting yourself in some way: not at all Total score: 0 Depression Screening Interpretation: Negative Depression Screening Done: Yes Source: Developed by Drs. Niraj Barclay, Citlaly Martinez, Ulisses Mckeon and colleagues, with an educational karri from [employer]. Thrive Questionnaire Date Thrive assessed: 07/04/23 I am a: Patient What is your living situation today?: I have a steady place to live Within the past 12 months, did the food you bought not last and you didn't have the money to get more?: Never true Within the past 12 months, did you worry whether your food would run out before you got money to buy more?: Never true Do you have trouble paying for medicines?: No Do you have trouble getting transportation to medical appointments?: No Do you have trouble paying your heating and electricity bill?: No Do you have trouble taking care of your child, family member or friend?: No Do you have trouble with day-to-day activities such as bathing, preparing meals, shopping, managing finances, etc.?: No Are you currently unemployed and looking for a job?: No Are you interested in more education?: No Please select the resources that you would like help with: None Currently or been in a relationship where the following occur: No concerns reported THRIVE Score: 0 AUDIT C Alcohol Use Questionnaire (AUDIT-C) 1. How often do you have a drink containing alcohol?: Monthly or less 2. How many drinks containing alcohol do you have on a typical day when you are drinking?: 3 or 4 3. How often do you have six or more drinks on one occasion?: Never Total Score: 2 CRISS-7 AMB Questionnaire CRISS-7 Date CRISS - 7 assessed: 07/04/23 Feeling nervous, anxious, or on edge: 0 = Not at all Not being able to stop or control worryin = Not at all Worrying too much about different things: 0 = Not at all Trouble relaxin = Not at all Being so restless that it is hard to sit still: 0 = Not at all Becoming easily annoyed or irritable: 0 = Not at all Feeling afraid as if something awful might happen: 0 = Not at all Total CRISS-7 score (0-4 normal; 5-9 mild; 10-14 moderate; 15-21 severe): 0 Source: Developed by Drs. Niraj Barclay, Citlaly Martinez, Ulisses Mckeon and colleagues, with an educational karri from [employer]. Review of Systems Const Denies body aches, Denies fatigue, Denies fever(s), Denies headache(s) and Denies weakness Eyes Denies change in vision ENT Denies dizziness, Denies headache(s), Denies nasal congestion, Denies nasal discharge and Denies sore throat Card Denies chest pain, Denies lightheadedness, Denies palpitations and Denies dyspnea Resp Denies chest congestion, Denies cough, Denies dyspnea and Denies wheezing GI Denies abdominal pain, Denies change in bowel habits and Denies heartburn Denies hematuria, Denies urinary frequency, Denies dysuria and Denies urinary urgency Musc Reports no additional complaints Skin/Breast Denies breast pain, Denies breast mass and Denies rash Neuro Denies dizziness, Denies headache(s) and Denies weakness Psych Reports no additional complaints Endo Denies fatigue, Denies polydipsia, Denies polyuria and Denies palpitations Hector/Lymph Denies easy bruising Aller/Immun Denies seasonal rhinorrhea and Denies wheezing Physical exam (Primary Care) Vital Signs: Last Vital Signs Pulse 72 12/20/23 08:16 BP 132/70 12/20/23 08:16 Pulse Ox 98 12/20/23 08:16 Oxygen Delivery Method Room Air 12/20/23 08:16 BMI result Body Mass Index 29.7 Tobacco/Smoking Status: Tobacco use Status Tobacco use date assessed 07/04/23 12/20/23 08:18 Patient Tobacco Use Status Never used Tobacco 12/20/23 08:18 e-Cigarette/Vaping Use Never Used 12/20/23 08:18 PHQ-9: PHQ-9 Score PHQ-9: Total score 0 12/20/23 08:51 Depression Screening Interpretation: Negative Thrive Assessment: Date of Thrive Assessment Date Thrive assessed 07/04/23 12/20/23 08:18 Currently or been in a relationship where the following occur: No concerns reported Const General: comfortable, no acute distress and alert Nutritional Appearance: overweight Orientation/consciousness: patient oriented x3 HENMT Head: Yes normocephalic Ears: hearing grossly normal bilaterally, external ears normal, TM's normal bilaterally and EAC's normal General nose exam: Normal external nose present, Normal nares present and No nasal discharge present Face and sinus: Yes face symmetric Mouth: Normal oral and palatal mucosa present, oropharynx normal and moist mucous membranes Eyes General: appearance normal, both eyes and all related structures Neck Neck: Yes full ROM, Yes no lymphadenopathy and Yes supple Thyroid: Thyroid normal Carotids: no bruits Resp Effort & Inspection: normal respiratory effort and able to speak in complete sentences Auscultation: clear to auscultation bilaterally Cardio Palpation: normal PMI Rate: regular rate Rhythm: regular rhythm Heart sounds: S1 normal heart sound present and S2 normal heart sound present Peripheral pulses: Peripheral pulses 2+ throughout GI Inspection: Yes normal to inspection Palpation (GI): Soft to palpation, nontender, no guarding and no masses Auscultation: normal bowel sounds General: Yes no CVA tenderness Back/Spine/Pelvis Back: no CVA tenderness and No back tenderness Cervical Spine: cervical ROM normal Thoracic/Lumbar Spine: thoraco-lumbar ROM normal and Lasegue's sign negative Neuro General: patient oriented x3, gait normal, tone normal, moves all extremities, Normal light touch and pain sensation, no focal motor deficits and CN's II-XI intact bilaterally Cranial nerves: Yes CN's II-XII intact bilaterally Cognition (Neuro): normal cognition Gait exam (Neuro): Normal gait present Motor exam (neuro): 5/5 motor strength present throughout Extrem General: Yes normal to inspection, Yes full ROM, Yes no joint enlargement, Yes no clubbing, cyanosis or edema, Yes no pedal edema, Yes no calf tenderness and Yes normal gait Results Reviewed Results Reviewed: Laboratory Tests 12/18/23 08:35 Estimat Average Glucose 120 Hemoglobin A1c % 5.8 Name: Namrata Peck Age/Sex: 68/F : 1955 Unit#: [id number] Attend Dr: Mary Mcmahon MD Re12/18/23 Status: DEP REF Location: [facility] Disch: SPEC : [id number] A[place]: 12/18/23 STATUS: COMP REQ : [id number] RECD: 12/18/[address]: Mary Mcmahon MD COMP: 12/18/23 ENTERED: 12/18/23 [facility] DR: ORDERED: Met Prof Fast, AST, ALT, Lipid Panel, Vitamin D 25-OH Test Result Flag Reference Sodium 140 135-145 mmol/L Potassium 4.6 3.3-5.1 mmol/L CL 106 96-108 mmol/L CO2 28 22-29 mmol/L Gap 11 L 12-20 BUN 15 9-16 mg/dL Creat 0.70 0.5-1.4 mg/dL EGFR > 60 NOTE: For -[place]aur[place] individuals, multiply the result by 1.210. Chronic Kidney Disease: Estimated GFR < 60 mL/min/1.73m2 Severe Kidney Disease: Estimated GFR < 15 mL/min/1.73m2 FBS 118 H 60-99 mg/dL A fasting glucose from 100-125 mg/dl is considered impaired (pre-diabetes). CA 9.2 8.4-10.2 mg/dL AST (GOT) 16 5-31 U/L ALT (GPT) 21 0-31 U/L Triglyceride 121 <150 mg/dL Desirable Triglyceride: less than 150 mg/dL Borderline High Triglyceride 150-199 mg/dL High Triglyceride: 200-499 mg/dL Very High Triglyceride: greater than or equal to 5OO mg/dL Cholesterol 185 <200 mg/dL Desirable Cholesterol: less than 200 mg/dL Borderline High Cholesterol: 200-239 mg/dL High Cholesterol: greater than 239 mg/dL LDL Calculated 103 H <100 mg/dL Desirable LDL: less than 100 mg/dL Near Optimal/Above Optimal LDL: 110-129 mg/dL Borderline High LDL: 130-159 mg/dL High LDL: 160-189 mg/dL Very High LDL: greater than or equal to 190 mg/dL HDL 58 >40 mg/dL Desirable HDL: greater than 40 mg/dL Note: This HDL assay may give artificially low results in patients with liver disease. Vit D 25-OH Tot 27.0 L >30 ng/mL Health Based Reference Values* < 20 ng/mL Deficient 20-30 ng/mL Insufficient > 30 ng/mL Sufficient *Ruth AUSTIN. N Engl J Med. 2007;357:266-280 Assessment and Plan Assessment & Plan (1) Osteopenia of left femoral neck: Code(s): M85.852 - Other specified disorders of bone density and structure, left thigh Plan: Continue with regular exercise specially doing weights, continue taking vitamin-D 3 supplements, and adequate calcium from dietary sources. Ordered a repeat bone density scan 4 next year together with screening mammogram (2) Essential hypertension: Code(s): I10 - Essential (primary) hypertension Plan: Blood pressure at goal of less than 130/80. Continue with current medication. Reinforced importance of following a low sodium diet, getting regular exercise, and lowering stress levels. (3) Diabetes mellitus with microalbuminuria: Code(s): E11.29 - Type 2 diabetes mellitus with other diabetic kidney complication; R80.9 - Proteinuria, unspecified Plan: Diabetes mellitus controlled, with latest hemoglobin A1c at 5.8%, continue with metformin 500 mg daily, in addition to adherence to recommended diet and getting regular exercise. Reminded to get yearly diabetes retinopathy screening Orders: Orders XR DEXA axial skeleton 06/19/24 M85.852 - Other specified disorders of bone density and structure, left thigh, Z78.0 - Asymptomatic menopausal state Hemoglobin A1c 06/14/24 E11.29 - Type 2 diabetes mellitus with other diabetic kidney complication, I10 - Essential (primary) hypertension, M85.852 - Other specified disorders of bone density and structure, left thigh, R80.9 - Proteinuria, unspecified Microalbumin, Random (w Creat) 06/14/24 E11.29 - Type 2 diabetes mellitus with other diabetic kidney complication, I10 - Essential (primary) hypertension, M85.852 - Other specified disorders of bone density and structure, left thigh, R80.9 - Proteinuria, unspecified Basic Metabolic Panel Fasting 06/14/24 E11.29 - Type 2 diabetes mellitus with other diabetic kidney complication, I10 - Essential (primary) hypertension, M85.852 - Other specified disorders of bone density and structure, left thigh, R80.9 - Proteinuria, unspecified Aspartate Amino Transferase 06/14/24 E11.29 - Type 2 diabetes mellitus with other diabetic kidney complication, I10 - Essential (primary) hypertension, M85.852 - Other specified disorders of bone density and structure, left thigh, R80.9 - Proteinuria, unspecified Alanine Aminotransferase 06/14/24 E11.29 - Type 2 diabetes mellitus with other diabetic kidney complication, I10 - Essential (primary) hypertension, M85.852 - Other specified disorders of bone density and structure, left thigh, R80.9 - Proteinuria, unspecified Vitamin D 25-OH Total 06/14/24 E11.29 - Type 2 diabetes mellitus with other diabetic kidney complication, I10 - Essential (primary) hypertension, M85.852 - Other specified disorders of bone density and structure, left thigh, R80.9 - Proteinuria, unspecified Lipid Panel 06/14/24 E11.29 - Type 2 diabetes mellitus with other diabetic kidney complication, I10 - Essential (primary) hypertension, M85.852 - Other specified disorders of bone density and structure, left thigh, R80.9 - Proteinuria, unspecified Coding Level of Care Code Est Pt Level 4 (45903) Complex EM visit Add On G2211 Diagnoses Osteopenia of left femoral neck M85.852 Essential hypertension I10 Diabetes mellitus with microalbuminuria .; R80.9
[2023-12-20 08:16] VITALS: BP 132/70; PULSE 72; O2SAT 98; BMI 29.7
== END 2023-12-20 09:11 | disposition home or self-care (01) ==
PROVIDERS: PCP Internal Medicine; Visit Provider Internal Medicine
DX: M85.852 Other specified disorders of bone density and structure, left thigh (principal); I10 Essential (primary) hypertension; E11.29 Type 2 diabetes mellitus with other diabetic kidney complication; R80.9 Proteinuria, unspecified
CPT/HCPCS: 99214; G2211

== ENCOUNTER 2024-07-04 12:36 | Outpatient (REF) | payer OTHER, SELFPAY ==
--- NOTE | ~2024-07-04 | MM_ITS ---
EXAMINATION: DXA BONE DENSITY AXIAL HISTORY: Estrogen deficiency TECHNIQUE: IKOTECH Dual energy absorptiometry (DEXA) of the lumbar spine, total left hip, and femoral neck was performed. COMPARISON: Comparison is made with the prior examination dated 05/25/2022. FINDINGS: The bone mineral density of the lumbar spine is 1.000 with a T-score of -1.5, and a Z-score of 0.2. This is indicative of osteopenia. This represents a BMD change of 0.9% compared to the prior exam. This is not statistically significant. The bone mineral density of the left total hip is 0.944 with a T-score of -0.5, and a Z-score of 1.0. This is indicative of normal bone mineral density. This represents a BMD change of 3.1% compared to the prior exam. This is not statistically significant. The bone mineral density of the left femoral neck is 0.858 with a T-score of -1.3, and a Z-score of 0.5. This is indicative of osteopenia. This represents a BMD change of 9.6% compared to the prior exam. FRACTURE RISK: The FRAX index suggests a ten year probability of major osteoporotic fracture of 5.4%, and of hip fracture 0.7%. MM/XR DEXA axial skeleton IMPRESSION: Based on bone mineral density, and according to World Health Organization (WHO) criteria, the diagnosis is consistent with osteopenia. All bone density values are in grams per centimeter squared (g/cm2). Statistically, 68% of repeat scans fall within 1 SD (+/- 0.010 g/cm2 for AP spine L1-L4) and 1 SD (+/- 0.012 g/cm2 for femur total) FRAX is a trademark of the [employer] Metabolic Bone Disease, a World Health Organization (WHO) Collaborating Center. Electronically signed by: Niraj Pereira MD 07/04/2024 02:34 PM EDT
== END 2024-07-04 12:37 | disposition home or self-care (01) ==
LOC: HO.MAMMO 12:36
PROVIDERS: PCP Internal Medicine; Visit Provider Internal Medicine
DX: Z12.31 Encounter for screening mammogram for malignant neoplasm of breast (principal); Z13.820 Encounter for screening for osteoporosis; Z78.0 Asymptomatic menopausal state; M85.852 Other specified disorders of bone density and structure, left thigh
CPT/HCPCS: 77063; 77067; 77080

== ENCOUNTER → 2024-07-04 13:00 | Outpatient (BNV) | payer OTHER, SELFPAY | PROVIDERS: PCP Internal Medicine; Visit Provider Radiology Diagnostic Radiology | DX: E28.39 Other primary ovarian failure (principal) | CPT/HCPCS: 77080 ==

== ENCOUNTER 2024-08-25 07:13 | Outpatient (REF) | payer OTHER, SELFPAY ==
--- OUTSIDE RECORDS SUMMARY | 2024-08-25 07:15 | XMS_ITS | Continuity of Care Document ---
Author Organization [facility] Address [address] [address] Phone Care Team Providers Care Inside Technical Sales Representative Name Role Phone Ritu Espino Unavailable Unavailable [...] on Encounter [facility] , [address] [place] [address], [id number], tel:[phone] [place] CataractPresbyopi aDESOpen Angle W/borderline Find [phone] [place], [address], . Referring Provider: [place], [address]. Family History Family Member Type Diagnosis Age At Onset Problem (finding) Father Problem (finding) Diabetes mellitus Payers Payer name Insurance type Covered democrat ID Authoriza tion(s) [employer] [id number] Social History Type Description Quantity Date Captured [...]
[2024-08-25 10:36] LABS: Alanine Aminotransferase 39 U/L (0-31); Anion Gap 11 (12-20); Aspartate Amino Transferase 32 U/L (5-31); Blood Urea Nitrogen 18 mg/dL (9-16); Calcium 8.8 mg/dL (8.4-10.2); Carbon Dioxide 26 mmol/L (22-29); Chloride 107 mmol/L (96-108); Cholesterol 169 mg/dL (<200); Estimated Glomerular Filt Rate > 60; Glucose Fasting 147 mg/dL (60-99); HDL Cholesterol 56 mg/dL (>40); LDL Cholesterol Calculated 96 mg/dL (<100); Potassium 4.5 mmol/L (3.3-5.1); Sodium 139 mmol/L (135-145); Triglycerides 89 mg/dL (<150)
[2024-08-25 10:50] LABS: Creatinine Urine 99.22 mg/dL
[2024-08-25 11:28] LABS: Estimated Average Glucose 128 mg/dL; Hemoglobin A1C 113.6975 umol/L; Hemoglobin A1c % 6.1 % (<6.0); Total Hemoglobin (HGBA1C) 2663.4165 umol/L
== END 2024-08-25 07:14 | disposition home or self-care (01) ==
LOC: HO.HMGCLDS 07:13
PROVIDERS: PCP Internal Medicine; Visit Provider Internal Medicine
DX: E11.29 Type 2 diabetes mellitus with other diabetic kidney complication (principal); R80.9 Proteinuria, unspecified; I10 Essential (primary) hypertension; M85.852 Other specified disorders of bone density and structure, left thigh
CPT/HCPCS: 36415; 80048; 80061; 82043; 82306; 82570; 83036; 84450; 84460

== ENCOUNTER 2024-08-27 08:17 | Outpatient (AMB) | payer OTHER, SELFPAY ==
--- OUTSIDE RECORDS SUMMARY | 2024-08-27 08:27 | XMS_ITS | Continuity of Care Document ---
Author Organization [facility] Address [address] [address] Phone Care Team Providers Care Meteorology Teacher Name Role Phone Ritu Espino Unavailable Unavailable [...] on Encounter [facility] , [address] [place] [address], [id number], tel:[phone] [place] CataractPresbyopi aDESOpen Angle W/borderline Find [phone] [place], [address], . Referring Provider: [place], [address]. Family History Family Member Type Diagnosis Age At Onset Problem (finding) Father Problem (finding) Diabetes mellitus Payers Payer name Insurance type Covered constitution party ID Authoriza tion(s) [employer] [id number] Social History Type Description Quantity Date Captured [...]
[2024-08-27 08:30] VITALS: BP 140/80; PULSE 80; RESP 16; TEMP 36.6; O2SAT 98; BMI 31.2
--- NOTE | 2024-08-27 08:30 | A.OFFPC_ITS ---
Vital Signs 08/27/24 08:30 Height 5 ft Weight 160 lb BMI 31.2 BP 140/80 H Blood Pressure Location Rt brachial Position Sitting Respiration 16 Pulse 80 Pulse Source Pulse Oximeter Temp 97.9 F Temp Source Oral Pulse Oximetry (%) 98 Oxygen Delivery Method Room Air Intake Visit Reasons: Annual PE Intake Note: Pt is here today for her PE: last mammogram 07/04/24, bone density scan 07/04/24, cologuard 07/31/23 Allergies statins Adverse Reaction (Uncoded 08/27/24 08:31) vertigo Medication List - Last Reconciled 08/27/24 by Mary Mcmahon MD ascorbic acid (vitamin C) mg PO blood sugar diagnostic (OneTouch Verio test strips) once a day cholecalciferol (vitamin D3) 50 mcg PO DAILY [citrus bergamot extract PO] coQ10 (ubiquinol) (Qunol Mj CoQ10) 100 mg PO BID elderberry fruit mg PO lancets test blood sugar once a day losartan 25 mg PO QAM metformin 500 mg PO DAILY [milk thistle PO] [turmeric- garlic-jewel PO] Tobacco use date assessed: 08/27/24 Fall risk assessment: No Falls in past year Last assessed Fall Risk: 08/27/24 Dental Screening Dental Screen Date: 08/27/24 Did you have a dental visit in the last 12 months?: Yes Did you have a dental problem in the last 6 months where you did not have access to dental care?: No Was dental information given to patient?: Patient has dentist HPI HPI Comments History of Present Illness Details - The patient is a 69-year-old female pr esenting for her physical exam and follow-up on diabetes mellitus and hypertension . Her recent travels and dietary habits have contributed to transient spikes in blood glucose levels. Her last hemoglobin A1c was reported as 6.1%. - The patient utilizes [place] [facility] f or hyperlipidemia management due to intolerance to statins. Recent liver function tests indicate elevated enzyme le vels, possibly linked to her supplements. - Additionally, she is observed to have osteopenia in her left hip with minimal recent changes. Her blood pressure profile reveals low-normal diastolic readi ngs, with transient elevation occurring from caffeine intake. -has strong family history for aneurysm, brother from aortic aneurysm, and sister also diagnosed with a brain aneurysm -up-to-date with her screening mammogram and bone density scan done 07/04/2024 which showed normal mammogram results and osteopenia left femoral neck and lumbar spine and normal in left thigh on bone density -up-to-date wit her colon cancer screeni rachel, had Cologuard done in 2023 with negative findings, due for recheck in 2026 COUNTS INCLUDE 234 BEDS AT THE [facility] Medical History (Updated 08/27/24 @ 09:59 by Mary Mcmahon MD) Family history of thoracic aortic aneurysm Family history of brain aneurysm Osteopenia of left femoral neck Diabetes mellitus with microalbuminuria History of nephrolithiasis History of herpes zoster History of tear of meniscus of knee joint Thalassemia Essential hypertension 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 Surgical History History of cataract surgery History of bunionectomy of both great toes History of cholecystectomy History of Hx of colonoscopy Family History Mother Diabetes mellitus Brother Lung cancer Diabetes mellitus Brother Diabetes mellitus Aortic aneurysm Sister Brain aneurysm Social History Housing: House Patient Tobacco Use Status: Never used Tobacco e-Cigarette/Vaping Use: Never Used service: No Current occupational status: retired Cognitive needs: No Hearing needs: No Vision needs: Yes Questionnaire PHQ-9 Over the last 2 weeks, how often have you been bothered by any of the following problems? 1. Little interest or pleasure in doing things: not at all 2. Feeling down, depressed, or hopeless: not at all 3. Trouble falling or staying asleep, or sleeping too much: not at all 4. Feeling tired or having little energy: not at all 5. Poor appetite or overeating: not at all 6. Feeling bad about yourself - or that you are a failure or have let yourself or your family down: not at all 7. Trouble concentrating on things, such as reading the newspaper or watching television: not at all 8. Moving or speaking so slowly that other people could have noticed. Or the opposite - being so fidgety or restless that you have been moving around a lot more than usual: not at all 9. Thoughts that you would be better off or of hurting yourself in some way: not at all Total score: 0 Depression Screening Interpretation: Negative Depression Screening Done: Yes 13659 - PHQ-9 Billing: Yes Source: Developed by Drs. Niraj Barclay, Citlaly Martinez, Ulisses Mckeon and colleagues, with an educational karri from [employer]. Thrive Questionnaire Date Thrive assessed: 08/27/24 I am a: Patient What is your living situation today?: I have a steady place to live Within the past 12 months, did the food you bought not last and you didn't have the money to get more?: Never true Within the past 12 months, did you worry whether your food would run out before you got money to buy more?: Never true Do you have trouble paying for medicines?: No Do you have trouble getting transportation to medical appointments?: No Do you have trouble paying your heating and electricity bill?: No Do you have trouble taking care of your child, family member or friend?: No Do you have trouble with day-to-day activities such as bathing, preparing meals, shopping, managing finances, etc.?: No Are you currently unemployed and looking for a job?: No Are you interested in more education?: No Please select the resources that you would like help with: None Currently or been in a relationship where the following occur: No concerns reported THRIVE Score: 0 AUDIT C Alcohol Use Questionnaire (AUDIT-C) 1. How often do you have a drink containing alcohol?: Monthly or less 2. How many drinks containing alcohol do you have on a typical day when you are drinking?: 1 or 2 3. How often do you have six or more drinks on one occasion?: Never Total Score: 1 CRISS-7 AMB Questionnaire CRISS-7 Date CRISS - 7 assessed: 08/27/24 Feeling nervous, anxious, or on edge: 0 = Not at all Not being able to stop or control worryin = Not at all Worrying too much about different things: 0 = Not at all Trouble relaxin = Not at all Being so restless that it is hard to sit still: 0 = Not at all Becoming easily annoyed or irritable: 0 = Not at all Feeling afraid as if something awful might happen: 0 = Not at all Total CRISS-7 score (0-4 normal; 5-9 mild; 10-14 moderate; 15-21 severe): 0 Source: Developed by Drs. Niraj Barclay, Citlaly Martinez, Ulisses Mckeon and colleagues, with an educational karri from [employer]. CRISS-7 Assessment Billing CRISS-7 Assessment Tool: CRISS-7 Assessment 33487 Review of Systems Const Denies body aches, Denies fatigue, Denies fever(s), Denies headache(s) and Denies weakness Eyes Details: Dr Sherwood in 2022, no retinopathy seen per patient Denies change in vision ENT Denies dizziness, Denies headache(s), Denies nasal congestion, Denies nasal discharge and Denies sore throat Card Denies chest pain, Denies lightheadedness, Denies palpitations and Denies dyspnea Resp Denies chest congestion, Denies cough, Denies dyspnea and Denies wheezing GI Denies abdominal pain, Denies change in bowel habits and Denies heartburn Denies hematuria, Denies urinary frequency, Denies dysuria and Denies urinary urgency Musc Reports no additional complaints Skin/Breast Denies breast pain, Denies breast mass and Denies rash Neuro Denies dizziness, Denies headache(s) and Denies weakness Psych Reports no additional complaints Endo Denies fatigue, Denies polydipsia, Denies polyuria and Denies palpitations Hector/Lymph Denies easy bruising Aller/Immun Denies seasonal rhinorrhea and Denies wheezing Physical exam (Primary Care) Vital Signs: Last Vital Signs Temp 97.9 F 08/27/24 08:30 Pulse 80 08/27/24 08:30 Resp 16 08/27/24 08:30 BP 140/80 H 08/27/24 08:30 Pulse Ox 98 08/27/24 08:30 Oxygen Delivery Method Room Air 08/27/24 08:30 BMI result Body Mass Index 31.2 Tobacco/Smoking Status: Tobacco use Status Tobacco use date assessed 08/27/24 08/27/24 08:32 Patient Tobacco Use Status Never used Tobacco 08/27/24 08:32 e-Cigarette/Vaping Use Never Used 08/27/24 08:32 PHQ-9: PHQ-9 Score PHQ-9: Total score 0 08/27/24 10:01 Depression Screening Interpretation: Negative Thrive Assessment: Date of Thrive Assessment Date Thrive assessed 08/27/24 08/27/24 08:32 Currently or been in a relationship where the following occur: No concerns reported Const General: comfortable, no acute distress and alert Nutritional Appearance: overweight Orientation/consciousness: patient oriented x3 [facility] Head: Yes normocephalic Ears: hearing grossly normal bilaterally, external ears normal, TM's normal bilaterally and EAC's normal General nose exam: Normal external nose present, Normal nares present and No nasal discharge present Face and sinus: Yes face symmetric Mouth: Normal oral and palatal mucosa present, oropharynx normal and moist mucous membranes Eyes General: appearance normal, both eyes and all related structures Neck Neck: Yes full ROM, Yes no lymphadenopathy and Yes supple Thyroid: Thyroid normal Carotids: no bruits Chest Breast/axilla palpation: normal palpation of the breasts Resp Effort & Inspection: normal respiratory effort and able to speak in complete sentences Auscultation: clear to auscultation bilaterally Cardio Palpation: normal PMI Rate: regular rate Rhythm: regular rhythm Heart sounds: S1 normal heart sound present and S2 normal heart sound present Peripheral pulses: Peripheral pulses 2+ throughout GI Inspection: Yes normal to inspection Palpation (GI): Soft to palpation, nontender, no guarding and no masses Auscultation: normal bowel sounds General: Yes no CVA tenderness Back/Spine/Pelvis Back: no CVA tenderness and No back tenderness Cervical Spine: cervical ROM normal Thoracic/Lumbar Spine: thoraco-lumbar ROM normal and Lasegue's sign negative Skin General skin exam: no rashes or lesions noted Neuro General: patient oriented x3, gait normal, tone normal, moves all extremities, Normal light touch and pain sensation, no focal motor deficits and CN's II-XI intact bilaterally Cranial nerves: Yes CN's II-XII intact bilaterally Cognition (Neuro): normal cognition Gait exam (Neuro): Normal gait present Motor exam (neuro): 5/5 motor strength present throughout Extrem General: Yes normal to inspection, Yes full ROM, Yes no joint enlargement, Yes no clubbing, cyanosis or edema, Yes no pedal edema, Yes no calf tenderness and Yes normal gait Psych Appearance: grossly normal and well kempt Mental Status: mental status grossly normal Speech and movement: Normal speech and movement present Affect: normal affect Results Reviewed Results Reviewed: Name: CiscoNamrata Age/Sex: 69/F : 1955 Unit#: [id number] Attend Dr: Mary Mcmahon MD Re08/25/24 Status: DEP [facility] Disch: SPEC : [id number] AINSLEY: 08/25/24 STATUS: COMP REQ : [id number] RECD: 08/25/24-[address]: Mary Mcmahon MD COMP: 08/25/24 ENTERED: 08/25/24 [facility] DR: ORDERED: Met Prof Fast, AST, ALT, Lipid Panel, Vitamin D 25-OH Test Result Flag Reference Sodium 139 135-145 mmol/L Potassium 4.5 3.3-5.1 mmol/L CL 107 96-108 mmol/L CO2 26 22-29 mmol/L Gap 11 L 12-20 BUN 18 H 9-16 mg/dL Creat 0.64 0.5-1.4 mg/dL eGFR > 60 Chronic Kidney Disease: Estimated GFR < 60 mL/min/1.73m2 Severe Kidney Disease: Estimated GFR < 15 mL/min/1.73m2 FBS 147 H 60-99 mg/dL A fasting glucose of 126 mg/dl or greater on more than one occasion is considered diagnostic of diabetes. CA 8.8 8.4-10.2 mg/dL AST (GOT) 32 H 5-31 U/L ALT (GPT) 39 H 0-31 U/L Triglyceride 89 <150 mg/dL Desirable Triglyceride: less than 150 mg/dL Borderline High Triglyceride 150-199 mg/dL High Triglyceride: 200-499 mg/dL Very High Triglyceride: greater than or equal to 5OO mg/dL Cholesterol 169 <200 mg/dL Desirable Cholesterol: less than 200 mg/dL Borderline High Cholesterol: 200-239 mg/dL High Cholesterol: greater than 239 mg/dL LDL Calculated 96 <100 mg/dL Desirable LDL: less than 100 mg/dL Near Optimal/Above Optimal LDL: 110-129 mg/dL Borderline High LDL: 130-159 mg/dL High LDL: 160-189 mg/dL Very High LDL: greater than or equal to 190 mg/dL HDL 56 >40 mg/dL Desirable HDL: greater than 40 mg/dL Note: This HDL assay may give artificially low results in patients with liver disease. Vitamin D 25-OH 46.0 >30 ng/mL Health Based Reference Values* < 20 ng/mL Deficient 20-30 ng/mL Insufficient > 30 ng/mL Sufficient Laboratory Tests 08/25/24 08/25/24 07:16 Unknown Estimat Average Glucose 128 Hemoglobin A1c % 6.1 H Urine Creatinine 99.22 Urine Microalbumin 258.0 Microalb/Creat Ratio 260.0 H Coding Level of Care Code Est Pt Prev Care >65y(34644) Diagnoses Annual visit for general adult medical examination with abnormal findings Z00.01 Diabetes mellitus with microalbuminuria E11.29; R80.9 Essential hypertension I10 Family history of brain aneurysm Z82.49 Family history of thoracic aortic aneurysm Z82.49 Additional Codes PHQ-9 - 40501 - PHQ-9 Billing: Yes ([id number]) CRISS-7 Assessment Billing - CRISS-7 Assessment Tool: CRISS-7 Assessment 21096 ([id number]) Assessment & Plan Assessment & Plan (1) Annual visit for general adult medical examination with abnormal findings: Code(s): Z00.01 - Encounter for general adult medical examination with abnormal findings Plan: Reviewed recent fasting lab results with patient. Continue regular dental visit every 6 months and regular yearly eye exams for diabetes retinopathy screening and routine checked. Take adequate calcium in diet and vitamin-D 3 at 2000 IU per cap once a day, in addition to weight-bearing exercises to help maintain good muscle tone and weight control. Instructed to do self-breast exam, and r continue with yearly mammogram, up-to-date with her screening bone density scan. Up-to-date with her vaccines and screening for colon cancer (2) Diabetes mellitus with microalbuminuria: Code(s): E11.29 - Type 2 diabetes mellitus with other diabetic kidney complication; R80.9 - Proteinuria, unspecified Category: Medical Plan: Continue with metformin 500 mg once a day in addition to adherence to healthy eating habits and regular exercise at least 30 minutes of moderate intensity exercise 3 to 4 times a week. Reminded to get her yearly diabetes retinopathy screening. Continue taking Citrucel per gamma s extract to help with lowering lipids. Will continue to monitor (3) Essential hypertension: Code(s): I10 - Essential (primary) hypertension Category: Medical Plan: Blood pressure slightly elevated on today's visit, reinforced importance of following a low-salt diet, continue with losartan 25 mg daily in the morning (4) Family history of brain aneurysm: Code(s): Z82.49 - Family history of ischemic heart disease and other diseases of the circulatory system Category: Medical Plan: Ordered MRA of brain (5) Family history of thoracic aortic aneurysm: Code(s): Z82.49 - Family history of ischemic heart disease and other diseases of the circulatory system Category: Medical Plan: Echocardiogram ordered Orders: Orders MR angio head wo con 08/27/24 Z82.49 - Family history of ischemic heart disease and other diseases of the circulatory system CA echo transthoracic complete 08/27/24 Z82.49 - Family history of ischemic heart disease and other diseases of the circulatory system Hemoglobin A1c 12/15/24 E11.29 - Type 2 diabetes mellitus with other diabetic kidney complication, R80.9 - Proteinuria, unspecified, I10 - Essential (primary) hypertension Comprehensive [place]. Panel Fast 12/15/24 E11. - Type 2 diabetes mellitus with other diabetic kidney complication, R80.9 - Proteinuria, unspecified, I10 - Essential (primary) hypertension Lipid Panel 12/15/24 E11.29 - Type 2 diabetes mellitus with other diabetic kidney complication, R80.9 - Proteinuria, unspecified, I10 - Essential (primary) hypertension Medications: New blood sugar diagnostic (FreeStyle Lite Strips) Check fasting glucose once a day before meal 50 ea 8RF E11.29 - Type 2 diabetes mellitus with other diabetic kidney complication, R80.9 - Proteinuria, unspecified blood-glucose meter (FreeStyle Lite Meter kit) Check fasting glucose once a day before meal 1 ea 0RF E11.29 - Type 2 diabetes mellitus with other diabetic kidney complication, R80.9 - Proteinuria, unspecified lancets (FreeStyle Lancets) Check fasting glucose once a day before meals 100 ea 5RF E11.29 - Type 2 diabetes mellitus with other diabetic kidney complication, R80.9 - Proteinuria, unspecified
== END 2024-08-27 10:21 | disposition home or self-care (01) ==
LOC: HO.HMCC 08:19
PROVIDERS: PCP Internal Medicine; Visit Provider Internal Medicine
DX: Z00.01 Encounter for general adult medical examination with abnormal findings (principal); E11.29 Type 2 diabetes mellitus with other diabetic kidney complication; R80.9 Proteinuria, unspecified; I10 Essential (primary) hypertension; Z82.49 Family history of ischemic heart disease and other diseases of the circulatory system

== ENCOUNTER → 2024-08-27 08:17 | Outpatient (BNVA) | payer OTHER, SELFPAY | PROVIDERS: PCP Internal Medicine; Visit Provider Internal Medicine | DX: Z00.01 Encounter for general adult medical examination with abnormal findings (principal); E11.29 Type 2 diabetes mellitus with other diabetic kidney complication; R80.9 Proteinuria, unspecified; I10 Essential (primary) hypertension; Z82.49 Family history of ischemic heart disease and other diseases of the circulatory system | CPT/HCPCS: 96127 ==

== ENCOUNTER → 2024-10-08 07:44 | Outpatient (REF) | payer MEDICARE, SELFPAY ==
--- NOTE | ~2024-10-08 | MR_ITS ---
EXAMINATION: MR ANGIOGRAPHY BRAIN WITHOUT CONTRAST CLINICAL INFORMATION: Family history of brain aneurysm, CVA, and ischemic heart disease. COMPARISON: None available. TECHNIQUE: 3-D [id number] imaging of the major intracranial arterial vasculature was performed without contrast. Multiplanar and MIPPED reformatted imaging was constructed from the axial data set. FINDINGS: There is normal flow related enhancement within the anterior and posterior circulation. There is no vascular stenosis, occlusion, or flow gap. There is no detectable aneurysm identified. The right posterior communicating artery is patent and present. The left is diminutive. Vertebral arteries are codominant. MR/MR angio head wo con IMPRESSION: Normal MR angiogram of the brain. Electronically signed by: Ihsan Torres MD 10/08/2024 12:39 PM EDT
--- NOTE | 2024-10-08 07:47 | CA_ITS ---
Transthoracic Echocardiogram Patient (Last, First, Middle): Namrata Peck, Gender: Female Date of : 1955 Age: 69 Procedure Date: 10/08/2024 Procedure Type: Transthoracic Echocardiogram Location: OP Height: 152.4 cm Weight: 71.22 kg BSA: 1.68 m2 Heart Rate: bpm BP: 135 / 76 mmHg Superintendent [employer]li[employer]: Referring MD: Mary Mcmahon MD Symptoms: Z82.49 - Family history of ischemic heart disease and other diseases of ... Study Quality: Good ECG Rhythm: Sinus Conclusions: - The left ventricular systolic function is normal. The calculated ejection fraction is 61% by biplane method. - No obvious valvular pathology seen on this study. Findings Left Ventricle Normal left ventricular cavity size. There is normal left ventricular wall thickness. The left ventricular systolic function is normal. The calculated ejection fraction is 61% by biplane method. There is no evidence of regional wall motion abnormalities. Evidence suggests grade I (mild) diastolic dysfunction. Right Ventricle Normal right ventricular cavity size. There is low normal right ventricular systolic function. Atria Both atria are normal in size. Aortic Valve The aortic valve structure and function is likely normal. There is no aortic valve stenosis. There is no aortic valve regurgitation. Mitral Valve The mitral valve appears normal. There is no mitral valve regurgitation. There is no mitral valve stenosis. Pulmonic Valve The pulmonic valve is likely normal. Tricuspid Valve There is trace tricuspid valve regurgitation. There is no evidence of pulmonary hypertension. Great Vessels The asc aorta is normal in size. Venous The inferior vena cava is normal in size and collapses greater than 50% with inspiration. Pericardium/Pleural There is no evidence of pericardial effusion. Prior Study Comparison No prior study available for comparison. Recommendations, Care & Conclusions No obvious valvular pathology seen on this study. Measurements 2D Linear Measurements IVSd: 1.00 0.6-0.9/0.6-1.0 cm LVIDd: 3.82 3.9-5.3/4.2-5.9 cm LVIDd Index: 2.27 2.4-3.2/2.2-3.1 cm/m2 LVIDs: 3.07 2.0-3.6 cm LVPWd: 0.96 0.7-1.1 cm Ao Root: 3.20 2.1-3.5 cm LA Diam: 3.20 2.7-3.8/3.0-4.0 cm LAIDs Index: 1.90 1.5-2.3 cm/m2 LV Mass: 142.85 67-162/88-224 g LV Mass Index: 85.03 43-95/49-115 g/m2 LVOT Diam: 1.90 3.0+(-)1.3 cm 2D Systolic Function EF 4C: 59.50 >55% EF 2C: 64.10 >55% EF BiP: 60.90 >55% Mitral Valve MV Pk E: 0.57 MV PK A: 0.90 MV Decel Time: 213.00 E/A: 0.60 E'Lateral: 6.31 E'Medial: 4.68 E/E' Med: 12.10 E/E' Lat: 9.00 PHT: 63.00 MVA PHT: 3.49 Decel [place]: 2.65 Aortic Valve AoV Pk [place]: 1.43 AoV Mn [place]: 0.96 AoV VTI: 0.29 AoV Pk Grad: 8.00 Aov Mn Grad: 4.00 ANTONIO Cont.VTI: 1.60 LVOT LVOT Pk [place]: 0.79 LVOT Mn [place]: 0.55 LVOT VTI: 0.16 LVOT Pk Grad: 2.00 LVOT Mn Grad: 1.00 LVOT Diam: 1.90 LVOT Area: 2.84 Diastolic Function MV Pk E: 0.57 MV Pk A: 0.90 E/A: 0.60 E'Medial: 4.68 E/E' Med: 12.10 E' Laterial: 6.31 E/E' Lat: 9.00 Right Ventricle TAPSE (mm): 23.00 TVS' [place]: 9.00 Tricuspid Valve TR Pk [place]: 1.73 TR Pk Grad: 12.00 RA Press: 3.00 RVSP: 15.00 Great Vessels Aorta Ao Root-2D: 3.20 2.0-3.7 cm Ao Asc: 3.40 2.1-3.4 cm Pulmonary Valve PV Pk [place]: 0.52 Peak PV Grad: 1.00 Updated in Other Vendor System with Status of Final Jayme Sexton MD electronically signed on 10/09/2024 12:28:10 PM with status of Final
== END ==
LOC: HO.CARD 07:44
PROVIDERS: PCP Internal Medicine; Visit Provider Internal Medicine
DX: Z13.6 Encounter for screening for cardiovascular disorders (principal); Z82.49 Family history of ischemic heart disease and other diseases of the circulatory system
CPT/HCPCS: 70544; 93306

== ENCOUNTER → 2024-10-08 07:47 | Outpatient (BNV) | payer MEDICARE, SELFPAY | PROVIDERS: PCP Internal Medicine; Visit Provider Internal Medicine | DX: Z82.49 Family history of ischemic heart disease and other diseases of the circulatory system (principal) | CPT/HCPCS: 93306 ==

== ENCOUNTER → 2024-10-08 09:10 | Outpatient (BNV) | payer MEDICARE, SELFPAY | PROVIDERS: PCP Internal Medicine; Visit Provider Radiology Diagnostic Radiology | DX: Z82.49 Family history of ischemic heart disease and other diseases of the circulatory system (principal) | CPT/HCPCS: 70544 ==

== ENCOUNTER 2024-12-19 07:14 | Outpatient (REF) | payer MEDICARE, SELFPAY ==
--- OUTSIDE RECORDS SUMMARY | 2012-09-20 04:15 | XMS_ITS | Continuity of Care Document ---
Author Organization [facility] Address [address] [address] Phone Care Team Providers Care Transitions Rn Care Coordinator Name Role Phone Ritu Espino Unavailable Unavailable Allergies, Adverse Reactions, Alerts Substance Reaction Status Criticality No Known allergies Medications Medication Instructions Dosage Effective Dates (start - stop) Status Comments OMEGA-3 (unknown strength) Not Available - Active B-12 (unknown strength) Not Available - Active Procedures Procedure Date Refraction Ophthalmic IOL Master Computerized Corneal Topography No Charg e New Patient Comprehensive Advance Directives Directive Yes / No Effective Date File Name No Information Encounters Encounter Description Practice Location Reason(s) For Visit Diagnoses Date Provider Providers Copied on Encounter [facility] , [address] [place] [address], [id number], tel:[phone] [place] CataractPresbyopi aDESOpen Angle W/borderline Find [address] [place], [address], . Referring [place]: [place], [address]. Family History Family Member Type Diagnosis Age At Onset Problem (finding) Father Problem (finding) Diabetes mellitus Payers Payer name Insurance type Covered democrat ID Authoriza tion(s) [employer] [place] [place] [id number] Social History Type Description Quantity Date Captured Comments Alcohol Use Details occasional w ine/beer socially Caffeine Use Details 2 cups per day Tobacco Use Status No Information Smoking Status Never smoker Non-Smoking Tobacco Use Details : No Details Available : No Details Available Sex Female Chief Complaint And Reason For Visit No Information Reason For Referral Reason For Referral No Information History Of Present Illness Encounter Date Complaint History Of Prese nt Illness No Information Functional Status Date Functional Assessmen t No Information Instructions Date Instruction Haja Nicole tanmay Cataract OU - OD>>OS MADDIE OU- Mild Open Angle W/borderline Find OU- IOP stable - - OU: Educated patient of my findings. Risk, benefits, complications, patient expectations, alternatives to surgery explained including but not limited to visual loss, infection, need to more surgery, delayed healing time, need for glasses after surgery. Patient understood and would like to proceed. OD>>OS - Treatment for OD first then OS to be treated . OU: Tears PRN , continue to monitor OU: IOP Stable , continue to monitor optic nerves Related to Cataract - To book treatment for cataract s OD>>OS Related to Cataract Assessments Type Assessment Date No Information Patient Care Teams Name Effective Dates (start - stop) Status Members No Information
--- OUTSIDE RECORDS SUMMARY | 2024-12-19 07:16 | XMS_ITS | Patient Health Record ---
Author Organization [facility] Address [address] [place], [place] [id number] Care Team Providers Care History Instructor Name Role Phone Eze PÉREZ MD, [facility] Primary Care Provider Unav ailable Aroldo Oseguera Unavailable [phone] Reason For Referral No Information Medications Medication SIG (Take, Route, Fr equency, Duration) Notes Start Date End Date Status Glucosamine 750 MG Orally A ctive Collagen 500 MG Orally Acti ve Vitamin E 600 UNIT 1 capsule Orally Once a day Active Vitamin D3 1000 UNIT 1 capsule Orally Once a day Active [place] 3 1000 MG 1 capsule Orally Once a day Active Vitamin B12 3000 MCG/ML Sublingual Active Vitamin C 1000 MG 1 tablet Orally Once a day Active Problems Problem Type SNOMED Code ICD Code Onset Dates Problem Status W/U Status Risk Notes Problem Change in bowel habit (00955223) Change in bowel habit (R19.4) Active confirmed Problem First degree hemorrhoids (349647232) First degree hemorrhoids (K64.0) Active confirmed Plan Of Treatment No Information Insurance Providers Payer Name Payer Address Payer Phone Subscriber Number Group Number Insured Name Patient Relationship to Insured Coverage Start Date Coverage End Date [address] [address] [place] [phone] [id number] Namrata Peck Self - patient is the insured Medical (General) History Medical History History ICD Code cholecystectomy Surgical History Surgery Date(Month/Year) cholecystectomy 2002 bunionectomy (left and Right) 2012 Colon-normal 2003 EGD-gastritis, h.pylori- 12/2009 Colon-normal 12/2009 Colon, IH 02/28 Hospitalization History Reason Date(Month/Year) cholecystectomy
[2024-12-19 10:38] LABS: MANUAL DIFF FLAG NO
[2024-12-19 10:51] LABS: Hematocrit 31.2 % (37.0-47.0); Hemoglobin 10.0 g/dl (12.0-16.0); Imm Gran Abs Auto 0.01 X10*3/uL (0.00-0.03); Imm Gran Pct Auto 0.2 % (0.0-0.4); Lymphocytes Absolute Auto 2.0 X10*3/uL (1.2-4.9); Mean Corpuscular HGB Conc 32.1 g/dl (31.0-35.0); Mean Corpuscular Hemoglobin 19.6 pg (27.0-33.0); NRBC Abs Auto 0.000 X10*3/uL (0.0-0.012); NRBC Pct Auto 0.0 /100WBC (0.0-0.2); Platelet Count 230 X10*3/uL (160-400); Red Blood Count 5.11 X10*6/uL (4.20-5.50); White Blood Count 4.4 X10*3/uL (4.8-10.8)
[2024-12-19 10:54] LABS: Mean Corpuscular Volume 61.1 fL (80.0-98.0)
[2024-12-19 10:57] LABS: Hemoglobin A1C 125.9267 umol/L; Total Hemoglobin (HGBA1C) 2693.4835 umol/L
[2024-12-19 11:19] LABS: Alanine Aminotransferase 27 U/L (0-31); Albumin Level 4.2 g/dL (3.5-5.0); Alkaline Phosphatase 60 U/L (39-117); Anion Gap 10 (12-20); Aspartate Amino Transferase 25 U/L (5-31); Blood Urea Nitrogen 14 mg/dL (9-16); Calcium 9.0 mg/dL (8.4-10.2); Carbon Dioxide 26 mmol/L (22-29); Chloride 108 mmol/L (96-108); Cholesterol 172 mg/dL (<200); Estimated Glomerular Filt Rate > 60; HDL Cholesterol 50 mg/dL (>40); Potassium 3.9 mmol/L (3.3-5.1); Sodium 140 mmol/L (135-145); Total Protein 7.4 g/dL (6.5-8.0); Triglycerides 131 mg/dL (<150)
== END 2024-12-19 07:15 | disposition home or self-care (01) ==
LOC: HO.HMGCLDS 07:14
PROVIDERS: PCP Internal Medicine; Visit Provider Internal Medicine
DX: E11.29 Type 2 diabetes mellitus with other diabetic kidney complication (principal); I10 Essential (primary) hypertension; D56.9 Thalassemia, unspecified; D64.9 Anemia, unspecified; R80.9 Proteinuria, unspecified
CPT/HCPCS: 36415; 80053; 80061; 83036; 85025

== ENCOUNTER 2024-12-23 07:34 | Outpatient (AMB) | payer OTHER, SELFPAY ==
--- OUTSIDE RECORDS SUMMARY | 2012-09-20 04:15 | XMS_ITS | Continuity of Care Document ---
Author Organization [facility] Address [address] [address] Phone Care Team Providers Care Record Center Specialist Name Role Phone Ritu Espino Unavailable Unavailable [...] on Encounter [facility] , [address] [place] [address], [id number], tel:[phone] [place] CataractPresbyopi aDESOpen Angle W/borderline Find [address] [place], [address], . Referring [place]: [place], [address]. Family History Family Member Type Diagnosis Age At Onset Problem (finding) Father Problem (finding) Diabetes mellitus Payers Payer name Insurance type Covered democrat ID Authoriza tion(s) [employer] [place] [id number] Social History Type Description Quantity Date Captured [...]
--- OUTSIDE RECORDS SUMMARY | 2024-12-23 07:39 | XMS_ITS | Patient Health Record ---
Author Organization [facility] Address [address] [place], [place] [id number] Care Team Providers Care Engraver Lettering Name Role Phone Eze PÉREZ MD, [facility] Primary Care Provider Unav ailable Aroldo Oseguera Unavailable [phone] Reason For Referral No Information Medications Medication SIG (Take, Route, Fr equency, Duration) Notes Start Date End Date Status Glucosamine 750 MG Orally A ctive Collagen 500 MG Orally Acti ve Vitamin E 600 UNIT 1 capsule Orally Once a day Active Vitamin D3 1000 UNIT 1 capsule Orally Once a day Active [place] 3 1000 MG 1 capsule Orally Once a day Active Vitamin B12 3000 MCG/ML Sublingual Active Vitamin C 1000 MG 1 tablet Orally Once a day Active Problems Problem Type SNOMED Code ICD Code Onset Dates Problem Status W/U Status Risk Notes Problem Change in bowel habit (92954259) Change in bowel habit (R19.4) Active confirmed Problem First degree hemorrhoids (706020096) First degree hemorrhoids (K64.0) Active confirmed Plan Of Treatment No Information Insurance Providers Payer Name Payer Address Payer Phone Subscriber Number Group Number Insured Name Patient Relationship to Insured Coverage Start Date Coverage End Date [address] [employer] [address] [place] [phone] [id number] Namrata Peck Self - patient is the insured Medical (General) History Medical History History ICD Code cholecystectomy Surgical History Surgery Date(Month/Year) cholecystectomy 2002 bunionectomy (left and Right) 2012 Colon-normal 2003 EGD-gastritis, h.pylori- 12/2009 Colon-normal 12/2009 Colon, IH 02/28 Hospitalization History Reason Date(Month/Year) cholecystectomy
[2024-12-23 07:43] VITALS: BP 132/80; PULSE 70; RESP 16; TEMP 36.7; O2SAT 98; BMI 30.9
--- NOTE | 2024-12-23 07:43 | A.OFFPC_ITS ---
Vital Signs 12/23/24 07:43 Height 5 ft Weight 158 lb BMI 30.9 BP 132/80 Blood Pressure Location Rt brachial Position Sitting Respiration 16 Pulse 70 Pulse Source Pulse Oximeter Temp 98.0 F Temp Source Oral Pulse Oximetry (%) 98 Oxygen Delivery Method Room Air Intake Visit Reasons: 4 month follow up Intake Note: Pt is here today for her 4mo. f/u Allergies statins Adverse Reaction (Uncoded 12/23/24 08:20) vertigo Medication List - Last Reconciled 12/23/24 by Mary Mcmahon MD alcohol swabs (Alcohol Prep Pads) 1 pad topical DAILY ascorbic acid (vitamin C) mg PO blood sugar diagnostic (OneTouch Verio test strips) once a day blood sugar diagnostic (FreeStyle Lite Strips) Check fasting glucose once a day before meal blood-glucose meter (FreeStyle Lite Meter kit) Check fasting glucose once a day before meal cholecalciferol (vitamin D3) 50 mcg PO DAILY [citrus bergamot extract PO] coQ10 (ubiquinol) (Qunol Mj CoQ10) 100 mg PO BID elderberry fruit mg PO lancets test blood sugar once a day lancets (FreeStyle Lancets) Check fasting glucose once a day before meals [Lifescan One Touch Plus lancets Check blood sugar once daily] [Lifescan One Touch Plus Meter As directed] [Lifescan One Touch Plus strips Check blood sugar once daily] losartan 25 mg PO QAM metformin 500 mg PO BIDWMEAL 3 months [milk thistle PO] [turmeric- garlic-jewel PO] Tobacco use date assessed: 12/23/24 Fall risk assessment: No Falls in past year Last assessed Fall Risk: 12/23/24 Dental Screening Dental Screen Date: 12/23/24 Did you have a dental visit in the last 12 months?: Yes Did you have a dental problem in the last 6 months where you did not have access to dental care?: No Was dental information given to patient?: Patient has dentist HPI 4 month follow up HPI Details - The patient is a 69-year-old female wi th history of diabetes mellitus with microalbuminuria and dyslipidemia here today for follow-up - noted to have worsening microalbuminur ia on last labs done.. -patient states that she has been off wi th her diet while on vacation 2 months ago, now trying to go back to her usual diet , does a lot of gardening, but has not been walking or doing her hikes as she has been experiencing intermittent sharp pain on medial aspect of her right knee when walking. Has been applying an arthritis topical liniment to joint which has been helping. - discuss results of recent echocardiogr am which showed no valvular abnormality, and only evidence of mild diastolic dysfunction seen - Preventative Care: Recommended to get her yearly flu vaccine and COVID vaccine, up-to-date with her shingles vaccine RSV vaccination, recommended as well to get her Prevnar 21 vaccine, available to pharmacy [facility] Medical History Family history of thoracic aortic aneurysm Family history of brain aneurysm Osteopenia of left femoral neck Diabetes mellitus with microalbuminuria History of nephrolithiasis History of herpes zoster History of tear of meniscus of knee joint Thalassemia Essential hypertension 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 Surgical History History of cataract surgery History of bunionectomy of both great toes History of cholecystectomy History of Hx of colonoscopy Family History Mother Diabetes mellitus Brother Lung cancer Diabetes mellitus Brother Diabetes mellitus Aortic aneurysm Sister Brain aneurysm Social History Housing: House Patient Tobacco Use Status: Never used Tobacco e-Cigarette/Vaping Use: Never Used service: No Current occupational status: retired Cognitive needs: No Hearing needs: No Vision needs: Yes Questionnaire PHQ-9 Over the last 2 weeks, how often have you been bothered by any of the following problems? 1. Little interest or pleasure in doing things: not at all 2. Feeling down, depressed, or hopeless: not at all 3. Trouble falling or staying asleep, or sleeping too much: not at all 4. Feeling tired or having little energy: not at all 5. Poor appetite or overeating: not at all 6. Feeling bad about yourself - or that you are a failure or have let yourself or your family down: not at all 7. Trouble concentrating on things, such as reading the newspaper or watching television: not at all 8. Moving or speaking so slowly that other people could have noticed. Or the opposite - being so fidgety or restless that you have been moving around a lot more than usual: not at all 9. Thoughts that you would be better off or of hurting yourself in some way: not at all Total score: 0 Depression Screening Interpretation: Negative Depression Screening Done: Yes Source: Developed by Drs. Niraj Barclay, Citlaly Martinez, Ulisses Mckeon and colleagues, with an educational karri from [employer]. Thrive Questionnaire Date Thrive assessed: 08/27/24 I am a: Patient What is your living situation today?: I have a steady place to live Within the past 12 months, did the food you bought not last and you didn't have the money to get more?: Never true Within the past 12 months, did you worry whether your food would run out before you got money to buy more?: Never true Do you have trouble paying for medicines?: No Do you have trouble getting transportation to medical appointments?: No Do you have trouble paying your heating and electricity bill?: No Do you have trouble taking care of your child, family member or friend?: No Do you have trouble with day-to-day activities such as bathing, preparing meals, shopping, managing finances, etc.?: No Are you currently unemployed and looking for a job?: No Are you interested in more education?: No Please select the resources that you would like help with: None Currently or been in a relationship where the following occur: No concerns reported THRIVE Score: 0 CRISS-7 AMB Questionnaire CRISS-7 Date CRISS - 7 assessed: 08/27/24 Source: Developed by Drs. Niraj Barclay, Citlaly Martinez, Ulisses Mckeon and colleagues, with an educational karri from [employer]. Review of Systems Const Denies body aches, Denies fatigue, Denies fever(s), Denies headache(s) and Denies weakness Eyes Details: Dr Sherwood in 2024, no retinopathy Denies change in vision ENT Denies dizziness, Denies headache(s) and Denies disequilibrium Card Denies chest pain, Denies lightheadedness, Denies palpitations and Denies dyspnea Resp Denies chest congestion, Denies cough, Denies dyspnea and Denies wheezing GI Denies abdominal pain, Denies change in bowel habits and Denies heartburn Denies hematuria, Denies urinary frequency, Denies dysuria and Denies urinary urgency Musc Reports no additional complaints and Reports as per HPI Skin/Breast Denies breast pain, Denies breast mass and Denies rash Neuro Denies dizziness, Denies headache(s), Denies disequilibrium and Denies weakness Psych Reports no additional complaints Endo Denies fatigue, Denies polydipsia, Denies polyuria and Denies palpitations Hector/Lymph Denies easy bleeding and Denies easy bruising Aller/Immun Denies seasonal rhinorrhea and Denies wheezing Physical exam (Primary Care) Vital Signs: Last Vital Signs Temp 98.0 F 12/23/24 07:43 Pulse 70 12/23/24 07:43 Resp 16 12/23/24 07:43 BP 132/80 12/23/24 07:43 Pulse Ox 98 12/23/24 07:43 Oxygen Delivery Method Room Air 12/23/24 07:43 BMI result Body Mass Index 30.9 Tobacco/Smoking Status: Tobacco use Status Tobacco use date assessed 12/23/24 12/23/24 07:44 Patient Tobacco Use Status Never used Tobacco 12/23/24 07:44 e-Cigarette/Vaping Use Never Used 12/23/24 07:44 PHQ-9: PHQ-9 Score PHQ-9: Total score 0 12/23/24 08:35 Depression Screening Interpretation: Negative Thrive Assessment: Date of Thrive Assessment Date Thrive assessed 08/27/24 12/23/24 07:44 Currently or been in a relationship where the following occur: No concerns reported Const General: no acute distress and alert Nutritional Appearance: overweight Orientation/consciousness: patient oriented x3 HENMT Head: Yes normocephalic Ears: external ears normal General nose exam: Normal external nose present Face and sinus: Yes face symmetric Mouth: moist mucous membranes Eyes General: appearance normal, both eyes and all related structures Neck Neck: Yes full ROM, Yes no lymphadenopathy and Yes supple Resp Effort & Inspection: normal respiratory effort and able to speak in complete sentences Auscultation: clear to auscultation bilaterally Cardio Rate: regular rate Rhythm: regular rhythm Heart sounds: S1 normal heart sound present and S2 normal heart sound present GI Inspection: Yes normal to inspection Palpation (GI): Soft to palpation, nontender, no guarding and no masses Auscultation: normal bowel sounds Skin General skin exam: no rashes or lesions noted Neuro General: patient oriented x3, gait normal, moves all extremities, Normal light touch and pain sensation, no focal motor deficits and CN's II-XI intact bilaterally Cranial nerves: Yes CN's II-XII intact bilaterally Cognition (Neuro): normal cognition Gait exam (Neuro): Normal gait present Motor exam (neuro): 5/5 motor strength present throughout Extrem General: Yes normal to inspection, Yes full ROM, Yes no joint enlargement, Yes no clubbing, cyanosis or edema, Yes no pedal edema, Yes no calf tenderness and Yes normal gait Results Reviewed Results Reviewed: Laboratory Tests 12/19/24 07:20 Estimat Average Glucose 137 Hemoglobin A1c % 6.4 H RUN: 12/23/24818 PAGE 1 [facility] [address] [place] [id number] Applications Chemist: Nathan Sanon M.D. Specimen Inquiry Name: Namrata Peck Age/Sex: 69/F : 1955 Unit#: [id number] Attend Dr: Mary cMmahon MD Re12/19/24 Status: DEP REF Location: [facility] Disch: SPEC : [id number] AINSLEY: 12/19/24 STATUS: COMP REQ : [id number] RECD: 12/19/[address]: Mary Mcmahon MD COMP: 12/19/24 ENTERED: 12/19/[address]: ORDERED: CMP Fast, Lipid Panel Test Result Flag Reference Sodium 140 135-145 mmol/L Potassium 3.9 3.3-5.1 mmol/L CL 108 96-108 mmol/L CO2 26 22-29 mmol/L Gap 10 L 12-20 BUN 14 9-16 mg/dL Creat 0.65 0.5-1.4 mg/dL eGFR > 60 Chronic Kidney Disease: Estimated GFR < 60 mL/min/1.73m2 Severe Kidney Disease: Estimated GFR < 15 mL/mi n/1.73m2 FBS 117 H 60-99 mg/dL A fasting glucose from 100-125 mg/dl is considered impaired (pre-diabetes). CA 9.0 8.4-10.2 mg/dL Total Bili 1.1 H 0.0-1.0 mg/dL AST (GOT) 25 5-31 U/L ALT (GPT) 27 0-31 U/L Protein, Total 7.4 6.5-8.0 g/dL Alb 4.2 3.5-5.0 g/dL Triglyceride 131 <150 mg/dL Desirable Triglyceride: less than 150 mg/dL Borderline High Triglyceride 150-199 mg/dL High Triglyceride: 200-499 mg/dL Very High Triglyceride: greater than or equal to 5OO mg/dL Cholesterol 172 <200 mg/dL Desirable Cholesterol: less than 200 mg/dL Borderline High Cholesterol: 200-239 mg/dL High Cholesterol: greater than 239 mg/dL LDL Calculated 96 <100 mg/dL Desirable LDL: less than 100 mg/dL Near Optimal/Above Optimal LDL: 110-129 mg/dL Borderline High LDL: 130-159 mg/dL High LDL: 160-189 mg/dL Very High LDL: greater than or equal to 190 mg/dL HDL 50 >40 mg/dL Desirable HDL: greater than 40 mg/dL Note: This HDL assay may give artificially low results in patients with liver disease. Alk Phos 60 39-117 U/L Coding Level of Care Code Est Pt Level 4 (23640) Complex EM visit Add On G2211 Diagnoses Essential hypertension I10 Diabetes mellitus with microalbuminuria E11.29; R80.9 Assessment & Plan Assessment & Plan (1) Essential hypertension: Code(s): I10 - Essential (primary) hypertension Category: Medical Plan: Blood pressure at goal of less than 130/80. Continue with losartan 25 mg 1 tablet daily in a.m.. Reinforced importance of following a low sodium diet, getting regular exercise, and lowering stress levels. (2) Diabetes mellitus with microalbuminuria: Code(s): E11.29 - Type 2 diabetes mellitus with other diabetic kidney complication; R80.9 - Proteinuria, unspecified Category: Medical Plan: Worsening of microalbuminuria noted on latest labs done., hemoglobin A1c within normal limits but higher than last check. Will continue on metformin 500 mg 1 tablet twice a day with meals and added Mounjaro 2.5 mg injected once a week, given instructions on how to use Mounjaro properly, and discuss possible side effects which may include decreased gut motility, gastroparesis, vision problems, constipation, nausea bloating up-to-date with her diabetes retinopathy screening Medications: New Mounjaro (tirzepatide) Worsening microalbuminuria 2.5 mg (0.5 mL) subcut QWEEK 2 mL 4RF NS E11.29 - Type 2 diabetes mellitus with other diabetic kidney complication, I10 - Essential (primary) hypertension, R80.9 - Proteinuria, unspecified
== END 2024-12-23 09:04 | disposition home or self-care (01) ==
LOC: HO.HMCC 07:35
PROVIDERS: PCP Internal Medicine; Visit Provider Internal Medicine
DX: I10 Essential (primary) hypertension (principal); E11.29 Type 2 diabetes mellitus with other diabetic kidney complication; R80.9 Proteinuria, unspecified